=== PATIENT | female | born 1945 | race Caucasian/White ===

== ENCOUNTER 2022-06-12 16:06 | Inpatient (IN) ==
[2022-06-12 17:44] LABS: POC Calcium, Ionized 1.12 (1.16-1.32); POC Creatinine 0.6 (0.6-1.2); POC Potassium 4.3 (3.3-5.1)
[2022-06-12] MEDS ORDERED: ONDANSETRON 4 MG/2 ML VIAL IV PRN (18:06)
--- NOTE | 2022-06-12 18:06 | Emergency Department Note ---
HPI General Chief complaint: Constipation Stated complaint: Constipation Time Seen by Provider: 06/12/22 17:08 Source: patient Mode of arrival: ambulatory Limitations: no limitations History of Present Illness HPI Narrative: Narrative: Patient presents to ED after being directed by the Radiology Department for abno rmal CT abdomen and pelvis. Patient's been having worsening constipation for several weeks and has not had to pass stool in the last couple days. Her PCP ordered a CT of the abdomen pelvis which was suspicious for an obstruction. Radiologist ordered a water-soluble enema which confirmed a high-grade colonic obstruction. Patient denies fever, chills, nausea, vomiting, Neeraj pain, melena, medic easier, dysuria, hematuria, urinary frequency, shortness of breath. She denies any [id number] medication. Patient has any other alleviating or aggravating factors. Related Data Home Medications Medication Instructions Recorded Confirmed brimonidine 0.2 % eye drops See Rx Instructions ophthalmic 01/17/21 06/11/22 (eye) .COMPLEX triamcinolone acetonide 0.1 % See Rx Instructions topical 01/17/21 06/11/22 topical ointment .COMPLEX Saccharomyces boulardii 250 mg 275 mg PO BID 03/12/21 06/11/22 capsule (Daily Probiotic (S. boulardii)) aspirin 81 mg tablet,delayed 81 mg PO QDAY 03/12/21 06/11/22 release cholecalciferol (vitamin D3) 25 50 mcg PO QDAY 03/12/21 06/11/22 mcg (1,000 unit) capsule coenzyme Q10 100 mg capsule 100 mg PO QDAY 03/12/21 06/11/22 diltiazem HCl 180 mg 180 mg PO QAM 03/12/21 06/11/22 capsule,extended release 24 hr escitalopram oxalate 20 mg tablet 20 mg PO .COMPLEX 03/12/21 06/11/22 latanoprost 0.005 % eye drops 1 drp ophthalmic (eye) QDAY 03/12/21 06/11/22 loratadine 10 mg capsule 10 mg PO QDAY 03/12/21 06/11/22 losartan 100 mg tablet See Rx Instructions PO QDAY 03/12/21 06/11/22 multivitamin 1 tab PO QAM 03/12/21 06/11/22 omega-3 fatty acids 1,000 mg 1,000 mg PO QDAY 03/12/21 06/11/22 capsule (Fish Oil Concentrate) rosuvastatin 20 mg tablet 20 mg PO QDAY 03/12/21 06/11/22 spironolactone 25 mg tablet See Rx Instructions PO BID 03/12/21 06/11/22 vitamin E mixed 400 unit capsule unit PO 03/12/21 06/11/22 alendronate 70 mg tablet (Fosamax) 70 mg PO QWEEK 06/11/22 06/11/22 Previous Rx's Medication Instructions Recorded albuterol sulfate 90 mcg/actuation 2 puff inhalation .COMPLEX PRN 06/11/22 aerosol inhaler shortness of breath or wheezing #8.5 grams Allergies Allergy/AdvReac Type Severity Reaction Status Date / Time Penicillins Allergy Mild Rash Verified 06/12/22 16:09 Review of Systems ROS ROS Narrative: Narrative: All systems ED: reviewed and negative except as stated. [facility] Narrative Patient History Narrative: Narrative: Medical/Surgical/Family History All Active Problems (Updated 06/12/22 @ 18:06 by Ray Neff DO) Colonic obstruction (Acute) [id number] deficiency (Chronic) Restrictive lung disease (Chronic) Chronic obstructive pulmonary disease (Chronic) Paralyzed hemidiaphragm (Chronic) Shortness of breath (Chronic) Nocturnal hypoxia (Chronic) Elevated hemidiaphragm (Chronic) Mixed stress and urge urinary incontinence (Acute) Vitamin D deficiency (Chronic) Osteopenia (Chronic) Mixed anxiety and depressive disorder (Chronic) Asthma (Chronic) Hypoxia (Chronic) Cholelithiasis without obstruction (Chronic) Calcification of coronary artery (Chronic) Paroxysmal junctional tachycardia (Chronic) Microalbuminuria (Chronic) Microscopic hematuria (Chronic) Seasonal allergies (Chronic) Dry skin (Chronic) Dry eye (Chronic) Itchy eyes (Chronic) Fatigue (Chronic) Glaucoma (Chronic) Depressive disorder (Chronic) Hyperlipidemia (Chronic) Peripheral edema (Chronic) Hypertensive disorder (Chronic) Paroxysmal atrial fibrillation (Chronic) Allergic rhinitis (Chronic) Bronchiolitis (Chronic) Disorder of diaphragm (Chronic) Atelectasis (Chronic) Medical History Allergic rhinitis Asthma Atelectasis Bronchiolitis Calcification of coronary artery Cholelithiasis without obstruction Depressive disorder Disorder of diaphragm Dry eye Dry skin Elevated hemidiaphragm left Fatigue Glaucoma Hyperlipidemia Hypertensive disorder Hypoxia Itchy eyes Microalbuminuria Microscopic hematuria Mixed anxiety and depressive disorder Nocturnal hypoxia Osteopenia Paroxysmal atrial fibrillation Paroxysmal junctional tachycardia Peripheral edema Seasonal allergies Shortness of breath Vitamin D deficiency Surgical History History of arthroscopic knee surgery 2008, 2009 Family History Father , age 69 Heart disease Alcohol abuse Myocardial infarction Cerebrovascular accident Mother , age 83 Cerebrovascular accident Hypertensive disorder Brother Heart disease Diabetes mellitus Hyperlipidemia Morbid obesity Colon cancer Grandmother Ovarian cancer Maternal Social History Smoking Status: Never smoker Alcohol Intake Frequency: holiday/special occasion only Substance Use: does not use Exam Narrative Narrative: Narrative: General Limitations: no limitations General appearance: Present alert Respiratory Respiratory: Present normal lung sounds bilaterally; Absent respiratory distress Cardiovascular Cardiovascular: Present regular rate and normal rhythm Adbominal Abdominal: Present soft and diminished bowel sounds; Absent tenderness Back Back: Absent CVA tenderness (R) or CVA tenderness (L) Neurological Neurological: Present oriented X3 and normal gait Psychiatric Psychiatric: Present normal affect and normal mood Skin Skin: Present warm (WNL) and intact Course Course Course Narrative: Patient was evaluated for constipation and inability to pass stool. CT abdomen pelvis was obtained that showed that patient has a possible colonic obstruction. A water-soluble enema was performed and confirmed a high-grade colonic obstruction. Case was discussed with general surgeon, Dr. Proctor recommends that patient be admitted to him. Plan was discussed with patient and she expressed verbal understanding and agreement of plan. Consultations Consultation #1: Case discussed with Dr. Proctor, on-call general surgeon, who recommend the patient be admitted to him. Time: 17:58 Vital Signs Vital signs: Vital Signs Temperature 97.8 F 06/12/22 16:10 Pulse Rate 67 06/12/22 16:10 Respiratory Rate 16 06/12/22 16:10 Blood Pressure 109/63 06/12/22 16:10 Pulse Oximetry (%) 96 06/12/22 16:10 Oxygen Delivery Method 06/12/22 16:10 Temperature 97.8 F 06/12/22 16:10 Pulse Rate 56 L 06/12/22 17:28 Respiratory Rate 16 06/12/22 16:10 Blood Pressure 144/68 06/12/22 17:16 Pulse Oximetry (%) 96 06/12/22 17:28 Oxygen Delivery Method 06/12/22 16:10 MDM MDM Narrative Medical decision making narrative: Narrative: Sepsis Sepsis Identified: No Differential Diagnosis Differential Diagnosis: obstruction, Neeraj pain, constipation Medical Records Medical records reviewed: Yes I reviewed the patient's medical records. Lab Data Lab results reviewed: Yes I reviewed the patient's lab results. Result diagrams: 06/12/22 17:11 Labs: Lab Results 06/12/22 06/12/22 Range/Units 17:11 17:41 WBC 6.1 (4.5-11.0) K/mcL RBC 4.66 (3.59-5.38) M/mcL Hgb 13.2 (11.2-15.7) g/dL Hct 40.9 (34.1-44.9) % POC Hct 42.0 (36-48) MCV 87.8 (80.0-100.0) fL MCH 28.3 (26.0-34.0) pg MCHC 32.3 (31.0-36.0) g/dL RDW 12.7 (11.5-14.5) % Plt Count 228 (140-440) K/mcL MPV 10.2 (7.4-10.4) fL Immature Gran % (Auto) 0.3 (0.0-0.5) % Neut % (Auto) 60.8 (38.0-78.0) % Lymph % (Auto) 25.8 (15.5-49.0) % [place] % (Auto) 10.7 (1.0-12.0) % Eos % (Auto) 1.6 (0.0-7.0) % Baso % (Auto) 0.8 (0.0-2.0) % Lymph # (Auto) 1.57 (1.50-4.80) K/mcL [place] # (Auto) 0.65 (0.10-0.90) K/mcL Eos # (Auto) 0.10 (0.00-0.70) K/mcL Baso # (Auto) 0.05 (0.00-0.30) K/mcL Immature Gran # 0.02 (0.00-0.05) K/mcl Absolute Neutrophils 3.70 (1.80-8.00) K/mcL POC Sodium 138 (133-145) POC Potassium 4.3 (3.3-5.1) POC Chloride 100 (96-108) POC Total CO2 29.0 (22-30) POC BUN 10 (6-20) POC Creatinine 0.6 (0.6-1.2) POC Glucose 92 (70-105) POC WB Ioniz Calcium 1.12 L (1.16-1.32) Radiology Data Radiology results reviewed: Yes I reviewed the patient's radiology results. Radiology results narrative: CT abdomen pelvis obtained with image reviewed myself, agree with radiologist to rotation Core Measures AMI Core Measures Followed: Yes Discharge Plan Patient/Caregiver Discharge Instructions Pt seen by [facility]/PA only: No Clinical Impression: Colonic obstruction Patient Disposition: Xfer As Outpt/Obs ([facility]) Condition: Fair Follow up with: Ru Partida MD [Primary Care Provider] - Prescriptions: No Action brimonidine 0.2 % drops See Rx Instructions ophthalmic (eye) .COMPLEX Rx Instructions: ophthalmic (eye); triamcinolone acetonide 0.1 % ointment See Rx Instructions topical .COMPLEX Rx Instructions: topical; escitalopram oxalate 20 mg tablet 20 mg PO .COMPLEX Rx Instructions: 20 mg PO ; losartan 100 mg tablet See Rx Instructions PO QDAY Rx Instructions: PO daily; spironolactone 25 mg tablet See Rx Instructions PO BID Rx Instructions: PO twice a day; rosuvastatin 20 mg tablet 20 mg PO QDAY diltiazem HCl 180 mg capsule,extended release 24hr 180 mg PO QAM loratadine 10 mg capsule 10 mg PO QDAY aspirin 81 mg tablet,delayed release (DR/EC) 81 mg PO QDAY latanoprost 0.005 % drops 1 drp ophthalmic (eye) QDAY multivitamin Tablet 1 tab PO QAM vitamin E mixed 400 unit capsule PO cholecalciferol (vitamin D3) 25 mcg (1,000 unit) capsule 50 mcg PO QDAY coenzyme Q10 100 mg capsule 100 mg PO QDAY omega-3 fatty acids [Fish Oil Concentrate] 1,000 mg capsule 1,000 mg PO QDAY Saccharomyces boulardii [Daily Probiotic (S. boulardii)] 250 mg capsule 275 mg PO BID alendronate [Fosamax] 70 mg tablet 70 mg PO QWEEK Trelegy Ellipta 100-62.5-25 mcg blister with device 0RF albuterol sulfate 90 mcg/actuation HFA aerosol inhaler 2 puff inhalation .COMPLEX PRN (Reason: shortness of breath or wheezing) Qty: 8.5 2RF Rx Instructions: 2 puffs inhalation ; PRN;
[2022-06-12 18:08] LABS: Basophils # (Auto) 0.05 K/mcL (0.00-0.30); Basophils % (Auto) 0.8 % (0.0-2.0); Eosinophils % (Auto) 1.6 % (0.0-7.0); Hematocrit 40.9 % (34.1-44.9); Hemoglobin 13.2 g/dL (11.2-15.7); Lymphocytes # (Auto) 1.57 K/mcL (1.50-4.80); Lymphocytes % (Auto) 25.8 % (15.5-49.0); Mean Cell Volume 87.8 fL (80.0-100.0); Mean Corpuscular HGB Conc 32.3 g/dL (31.0-36.0); Mean Platelet Volume 10.2 fL (7.4-10.4); Monocytes # (Auto) 0.65 K/mcL (0.10-0.90); Monocytes % (Auto) 10.7 % (1.0-12.0); Neutrophils % (Auto) 60.8 % (38.0-78.0); Platelet Count 228 K/mcL (140-440); RBC 4.66 M/mcL (3.59-5.38); Red Cell Distribution Width 12.7 % (11.5-14.5); WBC 6.1 K/mcL (4.5-11.0)
[2022-06-12] MEDS: 0.9 % SODIUM CHLORIDE 1,000 ML IV SCH (18:27)
--- NOTE | 2022-06-12 19:26 | General Surg History&Physical ---
HPI History of Present Illness Patient information: Note initiated : 06/12/22 at 7:11 pm Service Date, if different from initiated Date: [] Patient: Lita Pineda a 77 y/o F admitted on for Constipation. Chief Complaint: [] Chief complaint: Sigmoid colon obstruction History of present illness: Ms. Pineda is a 77 year old F with history of progressive constipation over the past 3 to 4 weeks. She was placed on stool softeners without improvement. Her primary care provider ordered a CT of abdomen and pelvis. This shows high-grade obstruction of the distal sigmoid colon and a follow-up single contrast barium enema shows a severe obstruction of the rectosigmoid junction with essentially no flow retrograde through the stricture. Patient has noted that her stools have become progressively smaller over the past few months. She has not had weight loss and she has not had rectal bleeding. She has never had colonoscopy evaluation. Constitutional Constitutional: Present fatigue and malaise; Absent weakness or weight loss EENT Eyes: Absent decreased night vision, diplopia or loss of vision Ears: Present decreased hearing and ear discharge Nose, mouth and throat: Present abnormal hearing; Absent dysphagia, hoarseness or vertigo Cardiovascular Cardiovascular: Present dyspnea on exertion, pedal edema and rapid heart rate; Absent chest pain, claudication or palpatations Respiratory Respiratory: Present dyspnea on exertion; Absent wheezing, chest congestion or excessive phlegm production Gastrointestinal Gastrointestinal: Present belching, change in stool character, constipation and cramping; Absent diarrhea, heartburn, nausea or vomiting Genitourinary Genitourinary: Absent dysuria or hematuria Musculoskeletal Musculoskeletal: Present arthralgias; Absent muscle cramps, myalgias or numbness Integumentary Integumentary: Present swelling (Lower extremities) and unusual bruising (In upper and lower extremities) Neurological Neurological: Absent dizziness, headache(s), sensory deficit or vertigo Psychiatric Psychiatric: Present depression Endocrine Endocrine: Present change in body appearance, excessive sweating, palpitations, polydipsia and polyphagia Hematologic/Lymphatic Hematologic/Lymphatic: Present easy bruising; Absent easy bleeding or lymphadenopathy Allergic/Immunologic Allergic/Immunologic: Absent tongue swelling, throat swelling, itchy eyes, uticaria, wheezing or lip swelling PFSH PFSH All Active Problems (Updated 06/12/22 @ 19:24 by Servando Proctor MD) Neoplasm of rectosigmoid junction (Acute) Colonic obstruction (Acute) [id number] deficiency (Chronic) Restrictive lung disease (Chronic) Chronic obstructive pulmonary disease (Chronic) Paralyzed hemidiaphragm (Chronic) Shortness of breath (Chronic) Nocturnal hypoxia (Chronic) Elevated hemidiaphragm (Chronic) Mixed stress and urge urinary incontinence (Acute) Vitamin D deficiency (Chronic) Osteopenia (Chronic) Mixed anxiety and depressive disorder (Chronic) Asthma (Chronic) Hypoxia (Chronic) Cholelithiasis without obstruction (Chronic) Calcification of coronary artery (Chronic) Paroxysmal junctional tachycardia (Chronic) Microalbuminuria (Chronic) Microscopic hematuria (Chronic) Seasonal allergies (Chronic) Dry skin (Chronic) Dry eye (Chronic) Itchy eyes (Chronic) Fatigue (Chronic) Glaucoma (Chronic) Depressive disorder (Chronic) Hyperlipidemia (Chronic) Peripheral edema (Chronic) Hypertensive disorder (Chronic) Paroxysmal atrial fibrillation (Chronic) Allergic rhinitis (Chronic) Bronchiolitis (Chronic) Disorder of diaphragm (Chronic) Atelectasis (Chronic) Medical History Allergic rhinitis Asthma Atelectasis Bronchiolitis Calcification of coronary artery Cholelithiasis without obstruction Depressive disorder Disorder of diaphragm Dry eye Dry skin Elevated hemidiaphragm left Fatigue Glaucoma Hyperlipidemia Hypertensive disorder Hypoxia Itchy eyes Microalbuminuria Microscopic hematuria Mixed anxiety and depressive disorder Nocturnal hypoxia Osteopenia Paroxysmal atrial fibrillation Paroxysmal junctional tachycardia Peripheral edema Seasonal allergies Shortness of breath Vitamin D deficiency Surgical History History of arthroscopic knee surgery 2008, 2009 Family History Father , age 69 Heart disease Alcohol abuse Myocardial infarction Cerebrovascular accident Mother , age 83 Cerebrovascular accident Hypertensive disorder Brother Heart disease Diabetes mellitus Hyperlipidemia Morbid obesity Colon cancer Grandmother Ovarian cancer Maternal Social History marital status: unknown smoking status: Never smoker alcohol intake frequency: holiday/special occasion only substance use type: does not use MEDS/ALLERGIES Home Medications and Allergies Home Medications Medication Instructions Recorded Confirmed Type brimonidine 0.2 % eye drops See Rx Instructions ophthalmic 01/17/21 06/11/22 History (eye) .COMPLEX triamcinolone acetonide 0.1 % See Rx Instructions topical 01/17/21 06/11/22 History topical ointment .COMPLEX Saccharomyces boulardii 250 mg 275 mg PO BID 03/12/21 06/11/22 History capsule (Daily Probiotic (S. boulardii)) aspirin 81 mg tablet,delayed 81 mg PO QDAY 03/12/21 06/11/22 History release cholecalciferol (vitamin D3) 25 50 mcg PO QDAY 03/12/21 06/11/22 History mcg (1,000 unit) capsule coenzyme Q10 100 mg capsule 100 mg PO QDAY 03/12/21 06/11/22 History diltiazem HCl 180 mg 180 mg PO QAM 03/12/21 06/11/22 History capsule,extended release 24 hr escitalopram oxalate 20 mg tablet 20 mg PO .COMPLEX 03/12/21 06/11/22 History latanoprost 0.005 % eye drops 1 drp ophthalmic (eye) QDAY 03/12/21 06/11/22 Hist ory loratadine 10 mg capsule 10 mg PO QDAY 03/12/21 06/11/22 History losartan 100 mg tablet See Rx Instructions PO QDAY 03/12/21 06/11/22 History multivitamin 1 tab PO QAM 03/12/21 06/11/22 History omega-3 fatty acids 1,000 mg 1,000 mg PO QDAY 03/12/21 06/11/22 History capsule (Fish Oil Concentrate) rosuvastatin 20 mg tablet 20 mg PO QDAY 03/12/21 06/11/22 History spironolactone 25 mg tablet See Rx Instructions PO BID 03/12/21 06/11/22 History vitamin E mixed 400 unit capsule unit PO 03/12/21 06/11/22 History albuterol sulfate 90 mcg/actuation 2 puff inhalation .COMPLEX PRN 06/11/22 06/11/22 Rx aerosol inhaler shortness of breath or wheezing #8.5 grams alendronate 70 mg tablet (Fosamax) 70 mg PO QWEEK 06/11/22 06/11/22 History Allergies Allergy/AdvReac Type Severity Reaction Status Date / Time Penicillins Allergy Mild Rash Verified 06/12/22 16:09 Physical Examination Vital Signs Vital signs: Temp Pulse Resp BP Pulse Ox O2 Del Method 97.8 F 58 L 16 114/87 96 06/12/22 16:10 06/12/22 18:29 06/12/22 16:10 06/12/22 18:29 06/12/22 18:29 06/12/22 16:10 General physical appearance General physical exam: well developed, well nourished, no distress, no pain and obese Eyes Eye exam: PERRL and normal ocular movement ENT ENT exam: normal mucosa and decreased hearing; negative dentures or mucosal exudate Head Head exam IM: Present atraumatic, normal inspection and normocephalic Neck Neck exam: no masses, no bruits, trachea midline, no lymphadenopathy and no venous distension Cardiovascular Cardiovascular exam IM: Present normal rate and rhythm, RRR, +S1 and +S2; Absent JVD or systolic murmur Respiratory Respiratory exam: normal expansion, normal respiratory effort and clear to auscultation Abdomen Abdomen: Present soft, non tender, bowel sounds (present) and distended; Absent organomegaly, masses or guarding Integumentary Integumentary: Present no rash, no growths and other (Bilateral stasis dermatitis with 1+ edema) Neurologic Neurologic: Present normal coordination and normal sensation Musculoskeletal Musculoskeletal: Present normal gait, normal posture and other (Surgical scars both knees) Psychiatric Psychiatric: Present oriented to time, oriented to person, oriented to place, speech is normal and memory intact Results Labs Result diagrams: 06/12/22 17:11 Labs: Abnormal lab results 06/12/22 Range/Units 17:41 POC WB Ioniz Calcium 1.12 L (1.16-1.32) All other labs normal. A/P Assessment and plan (1) Colonic obstruction: Status: Acute (2) Neoplasm of rectosigmoid junction: Status: Acute (3) Chronic obstructive pulmonary disease: Status: Chronic Qualifiers: COPD type: unspecified COPD Qualified Code(s): J44.9 - Chronic obstructive pulmonary disease, unspecified (4) Restrictive lung disease: Status: Chronic (5) Mixed anxiety and depressive disorder: Status: Chronic (6) Hypertensive disorder: Status: Chronic (7) Paroxysmal atrial fibrillation: Status: Chronic Plan Patient cannot have bowel prep because of total obstruction. She is counseled for laparotomy with resection of rectosigmoid mass and end colostomy. This will be performed tomorrow. She will receive perioperative antibiotics. Copy of the echocardiogram from [facility] will be obt ained. EKG chest x-ray will be done. Sepsis Sepsis Identified: No Time Spent With Patient Time: Total time spent is greater than 50% in coordination of care (as documented) at patient's floor/unit and/or counseling patient:
[2022-06-12] MEDS ORDERED: METOPROLOL TARTRATE 5 MG/5 ML VIAL IV PRN (19:37)
[2022-06-12] MEDS ORDERED: hydrALAZINE 20 MG/ML VIAL IV PRN (19:37)
[2022-06-12 20:26] LABS: Prothrombin Time 13.7 sec (11.9-14.5)
[2022-06-12] MEDS: CEFEPIME 2 GM VIAL IV SCH (21:32)
[2022-06-13] MEDS: metroNIDAZOLE 500 MG/100 ML BAG IV SCH ×4 (00:15→17:11)
[2022-06-13] MEDS: LORazepam 2 MG/ML VIAL IV PRN (00:25)
--- NOTE | 2022-06-13 01:58 | XRay Report ---
CLINICAL INFORMATION: Preop COMPARISON: 08/22/2020 TECHNIQUE: Portable FINDINGS: The heart size, mediastinum and pulmonary vessels are unremarkable. Severe chronic elevation of left diaphragm resulting in subtotal compressive atelectasis of the lingula and left lower lobe. The remaining lungs are clear. There are no effusions. The bones and soft tissues are within normal limits. IMPRESSION: Severe chronic elevation of the left diaphragm resulting in subtotal atelectasis lingula and left lower lobe. 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 No acute disease Interpreted and Authenticated by: Tashi Saini 06/13/22
[2022-06-13] MEDS: 0.9 % SODIUM CHLORIDE 1,000 ML IV SCH ×2 (03:53→15:34)
--- OUTSIDE RECORDS SUMMARY | 2022-06-13 04:54 | External Medical Summary ---
:1945 Author Care Team Providers Name Role Phone R MARTHA CLEMENTE MD Gold Beater [phone] [facility]ETRY Garnisher [phone] ANGELITA PRATIDA MD Primary Care Provider [phone] Allergies Code Code System Name Reaction Severity Status Onset Penicillins Rash Mild Active Notes: Keflex ok. Medications Name Status Start Date Stop Date albuterol sulfate 2.5 mg/3 mL (0.083 %) solution for nebulizatio n Active Not available Inhale 3 mL 4 times a day by nebulization route as directed. albuterol sulfate HFA 90 mcg/actuation aerosol inhaler Active Not available alendronate 70 mg tablet Active Not dayan ilable aspirin 81 mg tablet,delayed release Active Not available Take 1 tablet every day by oral route. atorvastatin 10 mg tablet Completed 2019 atorvastatin 20 mg tablet Completed 2020 azithromycin 500 mg tablet Completed 08/16 brimonidine 0.2 % eye drops Active Not available Calcium 500 Active Not available Take 500 mg twice daily. Cartia XT 180 mg capsule,extended release Active Not available diltiazem CD 120 mg capsule,extended release 24 hr Completed 10/17/2020 escitalopram 10 mg tablet Completed 2017 Take 1 tablet every day by oral route for 30 days. escitalopram 20 mg tablet Active Not av ailable fluorouracil 5 % topical cream Active N ot available fluticasone propionate 50 mcg/actuation nasal Active Not available spray,suspension furosemide 20 mg tablet Completed 08/16/20 18 latanoprost 0.005 % eye drops Active No t available levofloxacin 750 mg tablet Completed 08/16 loratadine 10 mg tablet Active Not avai lable Take one (1) tablet by mouth once daily losartan 100 mg tablet Active Not avail able Multiple Vitamins Active Not available take one daily Naprosyn 500 mg tablet Completed 9 Take 1 tablet twice a day by oral route as needed. prednisone 20 mg tablet Completed 08/16/20 rosuvastatin 20 mg tablet Active Not av ailable spironolactone 25 mg tablet Active Not available triamcinolone acetonide 0.1 % topical ointment Active Not available valacyclovir 1 gram tablet Completed 05/27 Vitamin D3 25 mcg (1,000 unit) capsule Active Not available Take 1 capsule every day by oral route. 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 Osteoporosis Active 06/10/2021 Carotid Atherosclerosis Active 06/19/2021 Procedures Date Name Performed by Total Knee Arthroplasty Information not available Notes: Bilateral 200908/17/2018 DEXA, Axial Skeleton [facility] pital Rad [address] [place] [address] (Work Place) 02/09/2019 DEXA, Axial Skeleton [facility] - Radiology [facility] [place] [address] (Work Place) 06/12/2020 MAMMO, Screening, Digital, Bilateral [facility] [address] [place] [id number] (Work Place) 07/30/2020 MAMMO, Screening, Digital, Bilateral [facility] Radiology [address] [place] [address], [place] [id number] (Work Place) 07/30/2020 XR, Chest, 2 View [facility] Rad [address] [place] [address] (Work Place) 08/22/2020 CT, Chest, W/o Contrast [facility] Radiology [address] [place] [address], [place] [id number] (Work Place) 08/23/2020 Electrocardiogram [facility] Rad [address] [place] [address] (Work Place) 10/17/2020 US, Abdomen, Complete [facility] [address] [place] [address], [place] [address] (Work Place) 10/17/2020 Electrocardiogram [facility] Rad [address] [place] [address] (Work Place) 01/09/2021 US, Renal [facility] [address] [place] [address], [place] [id number] (Work Place) 01/09/2021 US, Bladder [facility] [address] [place] [address], [place] [id number] (Work Place) 01/09/2021 US, Retroperitoneum, Complete [facility] [address] [place] [address], [place] [address] (Work Place) 01/30/2021 US, Echocardiogram, Transthoracic, [facility] Complete [address] [place] [address] (Work Place) 08/12/2021 MAMMO, Screening, Digital, Bilateral [facility] [address] [place] [address], [place] [id number] (Work Place) 05/27/2021 DEXA, Axial Skeleton + [facility]bral [facility] Fracture Assessment [address] [place] [address], [place] [id number] (Work Place) 05/27/2021 US, Duplex, Carotid Artery [facility] Rad [address] [place] [address] (Work Place) 08/10/2021 MAMMO, Screening, Digital, Bilateral [facility] Rad [address] [place] [address] (Work Place) 03/12/2022 XR, Shoulder, 2 or More View [facility] Rad [address] [place] [address] (Work Place) 06/12/2022 CT, Abdomen + Pelvis, W/ Contrast [facility] - Radiology [address] [place] [address] (Work Place) Results Lab Results Date Name Specimen Result Interpretation Description Value Range Status Address 06/12/2022 Urinalysis, U Normal Color yellow yellow Final [facility](DO Not Use): [address] Aiyana Snyder U Normal Clarity clear clear Final [facility](D O Not Use): [address] Aiyana Snyder U ABNORMAL Specgrav 1.030 1.015-1.[address](D O Not Use): [address] Aiyana Sanchez U Normal Ph 6.0 5.5-7.0 Final [facility](D O Not Use): [address] Aiyana Snyder U Normal Glucose negative negative; Final [facility](D O Not Use): [address] Snyder U ABNORMAL Bilirub small negative; Final [facility](D O Not Use): [address] Snyder U Normal Ketone negative negative; Final [facility](D O Not Use): [address] Snyder U Normal Blood negative negative; Final [facility](D O Not Use): [address] Snyder U ABNORMAL Protein trace negative; Final [facility](D O Not Use): [address]iy[address] Snyder U ABNORMAL Urobilin 1.0 0.2 Final [facility](D O Not Use): [address] Aiyana Snyder U Normal Nitrite negative negative; Final [facility](D O Not Use): [address]iyana Snyder U ABNORMAL Leukocyte 2+ negative; Final [facility] neg;trace [facility](D O Not Use): [address] Aiyana Sanchez 06/12/2022 Cbc WB Normal Wbc 6.66 K/uL 4.50-11.5 Final [place] 0 K/uL [facility](D O Not Use): [address] Aiyana Sanchez WB Normal Rbc 4.71 M/uL 4.00-5.20 Final [facility] ield M/uL [facility](D O Not Use): [address] Elijah Sanchezy WB Normal Hgb 13.4 g/dL 12.0-15.0 Final [facility] ield g/dL [facility](D O Not Use): [address] [facility], Aiyana WB Normal Hct 41.5 % 36.0-48.0 Final [facility](D O Not Use): [address] [facility], Aiyana WB Normal Mcv 88.1 fL 80.0-99.9 Final [facility](D O Not Use): [address] [facility], Aiyana WB Normal Mch 28.5 pg 26.0-34.0 Final [facility](D O Not Use): [address] [facility], [place] WB Normal Mchc 32.3 g/dL 31.0-36.0 Final Garf ield g/dL [facility](D O Not Use): [address] [facility], [place] WB Normal Rdw 12.6 % 11.0-16.0 Final [facility](D O Not Use): [address] [facility], Aiyana WB Normal Plt 247 K/uL 140-440 Final [facility] K/uL [facility](D O Not Use): [address] [facility], [place] WB Normal Mpv 9.1 fL 7.4-10.4 Final [facility](D O Not Use): [address] [facility], [place] WB Normal Neut% 60.7 % 45.0-70.0 Final [facility](D O Not Use): [address] [facility], [place] WB Normal Lymph% 25.5 % 15.5-49.0 Final [facility](D O Not Use): [address] [facility], Aiyana WB High Canadian% 10.7 % 1.7-9.2 % Final [facility](D O Not Use): [address] [facility], [place] WB Normal Eos% 2.0 % 1.0-5.0 % Final [facility](D O Not Use): [address] [facility], Aiyana WB High Baso% 0.9 % 0.0-0.5 % Final [facility](D O Not Use): [address] [facility], Aiyana WB Normal Ig% 0.2 % 0.0-72.0 Final [facility](D O Not Use): [address] [facility], [place] WB Normal Neut# 4.05 K/uL 2.00-7.50 Final [facility](D O Not Use): [address] [facility], [place] WB Normal Lymph# 1.70 K/uL 1.00-3.40 Final [facility](D O Not Use): [address] [facility], [place] WB High Canadian# 0.71 K/uL 0.10-0.60 Final [facility](D O Not Use): [address] [facility], [place] WB Normal Eos# 0.13 K/uL 0.00-0.40 Final [facility](D O Not Use): [address] [facility], [place] WB Normal Baso# 0.06 K/uL 0.00-0.10 Final [facility](D O Not Use): [address] [place] [address] WB Normal Ig# 0.01 K/uL 0.00-7.00 Final [facility](D O Not Use): [address] [place] [address] 06/12/2022 Lipase P Low Lip 59.58 U/L 73.00-393 Final [place] .00 U/L [facility](D O Not Use): [address] [place] [address] 06/12/2022 CMP, Serum S Normal Glu 109 mg/dL 70-110 Final [place] or Plasma mg/dL [facility](D O Not Use): [address] [place] [address] S Normal Bun 11.42 mg/dL 7.00-18.0 Final [place] 0 mg/dL [facility](D O Not Use): [address] [place] [address] S Normal Crea 0.79 mg/dL 0.30-1.30 Final [facility] mg/dL [facility](D O Not Use): [address] [place] [address] S Normal Na 138.69 136.00-14 Final [facility]/L 5.00 [facility] mmol/[facility](D O Not Use): [address] [place] [address] S Normal K 4.04 mmol/L 3.50-5.10 Final [place] mmol/L [facility](D O Not Use): [address] [facility] Normal Cl 102.40 98.00-107 Final Garfi d mmol/L .00 [facility] mmol/L [facility](D O Not Use): [address] [facility] Normal Ec02 29.78 21.00-32. Final Garfiel d mmol/L 00 mmol/L [facility](D O Not Use): [address] [facility] Normal Angap 10.55 7.00-21.0 [facility] mmol/L [facility](D O Not Use): [address] [facility] Normal Ca 9.24 mg/dL 8.10-10.2 Final Gar field 0 mg/dL [facility](D O Not Use): [address] [facility] Normal Tp 6.73 g/dL 6.00-8.30 Final Garf ield g/dL [facility](D O Not Use): [address] [place] [address] Aiyana Olivera Normal Alb 3.71 g/dL 3.40-5.00 Final Garf ield g/dL [facility](D O Not Use): [address] [place] [address] Aiyana Olivera Normal Glob 3.02 g/dL 2.20-3.30 Final Garf ield g/dL [facility](D O Not Use): [address] [place] [address] Aiyana Olivera Normal A/g 1.23 1.00-2.20 Final Garfiel d [facility](D O Not Use): [address] [place] [address] Aiyana Olivera Normal Tbili 0.47 mg/dL 0.00-1.20 Final Gar field mg/dL [facility](D O Not Use): [address] [facility] Normal Ast 22.54 U/L 13.00-39. Final Garf i[place] 00 U/L [facility](D O Not Use): [address] [facility] Normal Alt 23.14 U/L 14.00-59. Final Garf i[place] 00 U/L [facility](D O Not Use): [address] [facility] Normal Alp 103.81 U/L 46.00-136 Final Gar field .00 U/L [facility](D O Not Use): [address] Aiyana Snyder Normal Gfr 75.19 >60.00 Final [place] mL/min/bsa mL/min/bs [facility](D O Not Use): [address] Aiyana Snyder Normal Gfraa 91.13 >60.00 Final [place] mL/min/bsa mL/min/bs [facility](D O Not Use): [address] [facility] Aiyana Sanchez 05/07/2022 Lipid Panel, P Normal Chol 127.41 100.00-24 Keli l [place] Blood mg/dL 0.00 [facility] mg/ Hospital(D O Not Use): [address] [facility] Aiyana Sanchez Low Ahdl 48.90 mg/dL >60.[address] [facility] mg/dL [facility](D O Not Use): [address] [facility] Aiyana Sanchez Normal Trig 79.30 mg/dL 30.00-150 Final Mi rfield .00 mg/dL [facility](D O Not Use): [address] [facility] Aiyana Sanchez Normal Vldl 15.86 mg/dL Final [facility](D O Not Use): [address] [facility] Aiyana Sanchez Normal Risk 2.61 mg/dL 2.00-5.00 Final [facility] field mg/dL [facility](D O Not Use): [address] [facility] Aiyana Sanchez Low Dldl 59.53 mg/dL 70.00-129 Final [place] .00 mg/dL [facility](D O Not Use): [address] [facility] Aiyana Sanchez 05/07/2022 Bmp P Normal Ca 9.03 mg/dL 8.10-10.2 Final [place] 0 mg/dL [facility](D O Not Use): [address] [facility] Aiyana Sanchez Normal Crea 0.65 mg/dL 0.30-1.30 Final [facility] field mg/dL [facility](D O Not Use): [address] [facility] Aiyana Sanchez Normal K 4.47 mmol/L 3.50-5.10 Final Mi rfield mmol/L [facility](D O Not Use): [address] [facility] Aiyana Sanchez Normal Na 139.45 136.00-14 Final [facility] d mmol/L 5.00 [facility] mmol/L [facility](D O Not Use): [address] [facility] [address], Aiyana P Normal Bun 15.51 mg/dL 7.00-18.[address] [facility] 0 mg/dL [facility](D O Not Use): [address] Aiyana Snyder P Normal Glu 98 mg/dL 70-110 Final [place] mg/dL [facility](D O Not Use): [address] Aiyana Snyder P Normal Angap 12.72 7.00-21.0 Final [facility] d mmol/L 0 mmol/L [facility](D O Not Use): [address] Aiyana Snyder P Normal Cl 102.07 98.00-107 Final [facility] d mmol/L .00 [facility] mmol/[facility](D O Not Use): [address] Aiyana Snyder P Normal Ec02 29.12 21.00-32. Final [facility] d mmol/L 00 mmol/L [facility](D O Not Use): [address] Aiyana Snyder P Normal Gfr 93.86 >60.00 Final [place] mL/min/bsa mL/min/bs [facility](D O Not Use): [address] Aiyana Snyder P Normal Gfraa 113.76 >60.00 Final [place] mL/min/bsa mL/min/bs [facility](D O Not Use): [address] [facility] Aiyana Sanchez 04/23/2022 Urine, W/ U Normal Color yellow yellow Final [facility] Microscopy, Count y Auto_ref [facility] (DO Not Use): [address] [facility] Aiyana Sanchez U Normal Clarity clear clear Final [facility](D O Not Use): [address] [facility] Aiyana Sanchez U Normal Glucose normal normal Final [facility](D O Not Use): [address] [facility] Aiyana Sanchez U Normal Ketones negative negative Final [facility](D O Not Use): [address] [facility] Aiyana Sanchez U Normal Bilirubin negative negative Final [facility](D O Not Use): [address] [facility] Aiyana Sanchez U Normal Specific 1.022 1.005-1.0 Final [facility] [place] 30 [facility](D O Not Use): [address] [facility] Aiyana Sanchez U Normal Ph 6.5 5.0-7.5 Final [facility](D O Not Use): [address] Aiyana Snyder U Normal Blood negative negative Final Garfie ld [facility](D O Not Use): [address] Aiyana Snyder U ABNORMAL Protein trace negative Final [facility]): [address]iyana Snyder U ABNORMAL Urobilinog 1+ normal Final Gar field en [facility](D O Not Use): [address] Aiyana Snyder U Normal Nitrite negative negative Final Garf [facility](D O Not Use): [address] Aiyana Snyder U ABNORMAL Leukocyte 3+ negative Final Ga rfield Esterase [facility](D O Not Use): [address] Aiyana Snyder U ABNORMAL White 6-10 #/hpf 0-5 #/hpf Final G arfield Blood Cells Count [facility](D O Not Use): [address] Aiyana Snyder U Normal Red Blood 0-2 #/hpf 0-2 #/hpf Final [place] Cells [facility](D O Not Use): [address] Aiyana Snyder U Normal Squamous 0-10 #/hpf 0-10 Final Gar field Epithelial #/hpf [facility](D O Not Use): [address] Aiyana Snyder U Normal Bacteria none seen none seen Final G arfield hpf hpf [facility](D O Not Use): [address] Aiyana Snyder U Normal Mucous rare lpf none seen Final Garf ie lpf [facility](D O Not Use): [address] Aiyana Snyder U ABNORMAL Calcium many hpf none seen Final G arfield Oxalate hpf [facility]( DO Not Use): [address] Aiyana Snyder U Normal Culture culture to Final Garf ield Reflex follow [facility](D O Not Use): [address] Elijah Snydery 04/23/2022 Urine_cultur U Normal Urine clean catch Fi nal Trilla e_reflex Source [facility](D O Not Use): [address] Aiyana Snyder U Normal Micro <10,000 Final Tr[place] Culture colony [facility] Result [facility]( DO units per Not Use ): 66 mL mixed [address] Sanchez , urogenital Pomero y katherine 01/17/2022 CMP, Serum S Normal Glu 99 mg/dL 70-110 Final [place] or Plasma mg/dL [facility](D O Not Use): [address] Aiyana Snyder S Normal Bun 14.00 mg/dL 7.00-18.0 Final [place] 0 mg/dL [facility](D O Not Use): [address] [place] [address] Aiyana Olivera Normal Crea 0.73 mg/dL 0.30-1.30 Final Gar field mg/dL [facility](D O Not Use): [address] [place] [address] Aiyana Olivera Normal Na 140.02 136.00-14 Final Garfiel d mmol/L 5.00 [facility] Use): [address] [place] [address] Aiyana Olivera Normal K 4.50 mmol/L 3.50-5.10 Final [place] mmol/L [facility](D O Not Use): [address] [place] [address] Aiyana Olivera Normal Cl 103.45 98.00-107 Final Garfiel d mmol/L .00 [facility](D O Not Use): [address] [place] [address] Aiyana Olivera High Ec02 33.73 21.00-32. Final Garfiel d mmol/L 00 mmol/L [facility](D O Not Use): [address] [place] [address] Aiyana Olivera Normal Angap 7.34 mmol/L 7.00-21.0 Final [place] 0 mmol/L [facility](D O Not Use): [address] [place] [address] Aiyana Olivera Normal Ca 9.74 mg/dL 8.10-10.2 Final [place] field 0 mg/dL [facility](D O Not Use): [address] [place] [address] Aiyana Olivera Normal Tp err code 9 6.00-8.30 Final Gar field g/dL g/dL [facility](D O Not Use): [address] [place] [address] Aiyana Olivera Normal Alb 4.21 g/dL 3.40-5.00 Final Garf ield g/dL [facility](D O Not Use): [address] [place] [address] Aiyana Olivera Normal Tbili 0.54 mg/dL 0.00-1.20 Final Gar field mg/dL [facility](D O Not Use): [address] [place], [place] [address]pablo Olivera Normal Ast 13.74 U/L 13.00-39. Final Garf i[place] 00 U/L [facility](D O Not Use): [address] [place] [address] Aiyana Normal Alt 32.22 U/L 14.00-59. Final Garf i[place] 00 U/L [facility](D O Not Use): [address] [facility] Normal Alp 112.49 U/L 46.00-136 Final Gar field .00 U/L [facility](D O Not Use): [address] [facility] S Normal Gfr 82.45 >60.00 Final [place] mL/min/bsa mL/min/bs Cou [facility](D O Not Use): [address] [facility] S Normal Gfraa 99.93 >60.00 Final [place] mL/min/bsa mL/min/bs Cou [facility](D O Not Use): [address] [place] [address] 01/17/2022 Lipid Panel, P Normal Chol 143.30 100.00-24 [facility] Blood mg/dL 0.00 [facility] mg/[facility](D O Not Use): [address] [facility] P Low Ahdl 50.00 mg/dL >60.[address] [facility] mg/dL [facility](D O Not Use): [address] [facility] P Normal Trig 135.83 30.00-150 Final [facility] d mg/dL .00 mg/dL [facility](D O Not Use): [address] [facility] P Normal Vldl 27.17 mg/dL Final [facility](D O Not Use): [address] [facility] P Normal Risk 2.87 mg/dL 2.00-5.00 Final [facility] field mg/dL [facility](D O Not Use): [address] [facility] P Low Dldl 64.84 mg/dL 70.00-129 Final [place] .00 mg/dL [facility](D O Not Use): [address] [place] [address] 01/17/2022 Hemoglobin WB Normal A1C 6.0 % 4.5-6.2 % Final [place] a1C [facility](D O Not Use): [address] [place] [address] 01/17/2022 CBC W/ Auto S Normal Wbc 7.9 10*3 4.0-11.0 Keli l Tr[place] Diff_ref /uL 10*3 /uL [facility](D O Not Use): [address] [facility] Aiyana S Normal Rbc 5.04 10*6 3.80-5.20 Final Garf ield /uL 10*6 /uL [facility](D O Not Use): [address] [facility] Normal Hgb 14.3 g/dL 11.6-15.5 Final Garf ield g/dL [facility](D O Not Use): [address] [facility] Normal Hct 45.3 % 35.0-46.0 Final Garfiel d % [facility](D O Not Use): [address] [facility] Normal Mcv 89.9 fL 80.0-100. Final Garfie ld 0 fL [facility](D O Not Use): [address] [facility] Normal Mch 28.4 pg 27.0-34.0 Final Garfie ld pg [facility](D O Not Use): [address] [facility] Normal Mchc 31.6 g/dL 31.5-35.7 Final Garf ield g/dL [facility](D O Not Use): [address] [facility] Normal RDW-CV 12.5 % 11.0-15.0 Final Garfie ld % [facility](D O Not Use): [address] [facility] Normal Plt 264 10*3 150-400 Final Garfiel d /uL 10*3 /uL [facility](D O Not Use): [address] [facility] Normal Mpv 10.1 fL 9.4-12.4 Final Garfiel d [facility](D O Not Use): [address] [facility] Normal Neutrophil 60.2 % 40.0-80.0 Final [place] , % % [facility](D O Not Use): [address] [facility] Normal Lymphocyte 27.4 % 15.0-45.0 Final [place] , % % [facility](D O Not Use): [address] [facility] Normal Monocyte, 8.6 % 0.0-12.0 Final Garf ield % % [facility](D O Not Use): [address] [facility] Normal Eosinophil 2.4 % 0.0-7.0 % Final [place] , % [facility](D O Not Use): [address] [facility] Normal Basophil, 1.1 % 0.0-2.0 % Final [facility](D O Not Use): [address] [facility] Normal Neutrophil 4.75 10*3 2.00-7.30 Final [place] , Absolute /uL 10*3 /uL [facility](D O Not Use): [address] [facility] Normal Lymphocyte 2.16 10*3 1.00-3.40 Final [place] , Absolute /uL 10*3 /uL [facility](D O Not Use): [address] [facility] Normal Monocyte, 0.68 10*3 0.00-0.80 Final [place] Absolute /uL 10*3 /uL [facility](D O Not Use): [address] [facility] Eosinophil 0.19 10*3 0.00-0.50 Final Trilla , Absolute /uL 10*3 /uL [facility](D O Not Use): [address] [facility] Normal Basophil, 0.09 10*3 0.00-0.10 Final Trilla Absolute /uL 10*3 /uL [facility](D O Not Use): [address] [facility] Normal Ig, % 0.3 % 0.0-1.0 % Final formerly [facility](D O Not Use): [address] [facility] Normal Ig, 0.02 10*3 0.00-0.05 Final [facility] ield Absolute /uL 10*3 /uL [facility](D O Not Use): [address] [facility] Normal Nrbc, % 0.0 % 0.0-1.0 % Final [facility](D O Not Use): [address] [facility] Normal NRBC, 0.00 10*3 0.00-0.01 Final [facility] /uL 10*3 /uL [facility](D O Not Use): [address] [place] [address] 01/17/2022 Vitamin D 25 S Normal Vitamin D, 58 NG/mL >=30 Final Trilla Hydroxy_ref 25 Hydroxy NG/mL [facility](D O Not Use): [address] [place] [address] 01/17/2022 TSH_reflex_F S Normal TSH Reflex 3.010 0.270-4.2 Final Trilla T4_Ref uIU/mL 00 uIU/mL [facility](D O Not Use): [address] Aiyana Snyder 01/17/2022 Urine, W/ U Normal Color yellow yellow Final [facility] Microscopy, Count y Auto_ref Hospital (DO Not Use): [address] Aiyana Snyder U Normal Clarity clear clear Final [facility](D O Not Use): [address] [facility] Aiyana Sanchez U Normal Glucose normal normal Final [facility](D O Not Use): [address] [facility] Aiyana Sanchez U Normal Ketones negative negative Final [facility](D O Not Use): [address] [facility] Aiyana Sanchez U Normal Bilirubin negative negative Final [facility](D O Not Use): [address] Aiyana Snyder Normal Specific 1.021 1.005-1.[address](D O Not Use): [address] Aiyana Snyder U Normal Ph 7.0 5.0-7.5 Final [facility](D O Not Use): [address] Aiyana Snyder U Normal Blood negative negative Final [facility](D O Not Use): [address] Aiyana Snyder U ABNORMAL Protein trace negative Final [facility](D O Not Use): [address] Aiyana Snyder U Normal Urobilinog normal normal Final [facility](D O Not Use): [address] Aiyana Snyder U Normal Nitrite negative negative Final [facility](D O Not Use): [address] Aiyana Snyder U ABNORMAL Leukocyte 2+ negative Final [facility](D O Not Use): [address] Aiyana Snyder U ABNORMAL White 21-50 #/hpf 0-5 #/hpf Final [facility] Blood Cells Count Hospital(D O Not Use): [address] Aiyana Snyder U ABNORMAL Red Blood 3-5 #/hpf 0-2 #/hpf Final [facility](D O Not Use): [address] Aiyana Snyder U Normal Squamous 0-10 #/hpf 0-10 Final [facility] Epithelial #/hpf [facility](D O Not Use): [address] [facility] U Normal Bacteria none seen none seen Final [facility]field hpf hpf [facility](D O Not Use): [address] Aiyana Snyder U Normal Mucous rare lpf none seen Final Garf ield lpf [facility](D O Not Use): [address] [facility] U Normal Culture culture to Final Garf ield Reflex follow [facility](D O Not Use): [address] [facility] 01/17/2022 Micro S Normal Microalbum 1.4 mg/dL 0.0-2.0 Keli l Trilla Albumin, in mg/dL [facility](D O Urine_ref Not Use ): [address] [facility] Aiyana Sanchez S Normal Creatinine 115 mg/dL 28-217 Final [facility] , Urine mg/dL [facility](D O Not Use): [address] [facility] S Normal Microalbum 12 mg/g <20 mg/g Final [facility] in/creatini Count y [facility] Hospital(D O Not Use): [address] [facility] 01/17/2022 Protein, S Normal Total 7.2 g/dL 6.4-8.3 Final G [facility]field Total, Serum Protein g/dL Cou [facility](D O Not Use): [address] [facility] A[facility] 01/17/2022 Urine_cultur U Normal Urine clean catch Fi nal Trilla e_reflex Source [facility](D O Not Use): [address] [facility] U Normal Micro 10,000-50,0 Final Garfi eld Culture 00 colony [facility] Result [facility]( DO units per Not Use ): 66 mL mixed N [facility] , urogenital Pomero y katherine 09/17/2021 Lipid Panel, P Normal Chol 132.49 100.00-24 Keli l Trilla Blood mg/dL 0.00 [facility] mg/dL Hospital(D O Not Use): [address] [facility] P Low Ahdl 52.00 mg/dL >60.00 Final Garfi eld mg/dL [facility](D O Not Use): [address] [facility] P Normal Trig 91.36 mg/dL 30.00-150 Final [facility] .00 mg/dL [facility](D O Not Use): [address] [facility] P Normal Vldl 18.27 mg/dL Final [facility](D O Not Use): [address] [facility] P Normal Risk 2.55 mg/dL 2.00-5.00 Final Gar field mg/dL [facility](D O Not Use): [address] [facility] P Low Dldl 60.95 mg/dL 70.00-129 Final [facility] .00 mg/dL [facility](D O Not Use): [address] [facility] Aiyana Sanchez 09/17/2021 CMP, Serum S Normal Glu 99 mg/dL 70-110 Final Trilla or Plasma mg/dL [facility](D O Not Use): [address] [facility] Aiyana Sanchez S Normal Bun 17.00 mg/dL 7.00-18.0 Final [place] [facility] 0 mg/dL [facility](D O Not Use): [address] [facility] Aiyana Sanchez Normal Na 143.87 136.00-14 Final [facility] d mmol/L 5.00 [facility] mmol/L [facility](D O Not Use): [address] [facility] Aiyana Sanchez Normal K 4.33 mmol/L 3.50-5.10 Final [facility] mmol/L [facility](D O Not Use): [address] [facility] Aiyana Sanchez Normal Cl 103.99 98.00-107 Final [facility] d mmol/L .00 [facility] mmol/L [facility](D O Not Use): [address] [facility] Aiyana Sanchez High Ec02 32.66 21.00-32. Final [facility] d mmol/L 00 mmol/L [facility](D O Not Use): [address] [facility] Aiyana Sanchez Normal Angap 11.55 7.00-21.0 Final [facility] d mmol/L 0 mmol/L [facility](D O Not Use): [address] [facility] Aiyana Sanchez S Normal Tp 7.00 g/dL 6.00-8.30 Final Garf ield g/dL [facility](D O Not Use): [address] [facility] Normal Glob 3.05 g/dL 2.20-3.30 Final Garf ield g/dL [facility](D O Not Use): [address] Aiyana Sanchez S Normal A/g 1.30 1.00-2.20 Final formerly [facility](D O Not Use): [address] [facility] Normal Tbili 0.43 mg/dL 0.00-1.20 Final [facility] mg/dL [facility](D O Not Use): [address] [facility] Normal Ast 19.51 U/L 13.00-39. Final [facility] U/L [facility](D O Not Use): [address] [facility] Normal Alt 25.43 U/L 14.00-59. Final [facility] U/L [facility](D O Not Use): [address] [facility] Normal Alp 107.74 U/L 46.00-136 Final [facility] field .00 U/L [facility](D O Not Use): [address] [facility] Normal Gfr 86.62 >60.00 Final Trilla mL/min/bsa mL/min/bs [facility] Hospital(D O Not Use): [address] [facility] Normal Gfraa 104.98 >60.00 Final Trilla mL/min/bsa mL/min/bs [facility](D O Not Use): [address] [place] [address] 09/17/2021 Hemoglobin WB Normal A1C 5.8 % 4.5-6.2 % Final Trilla a1C [facility](D O Not Use): [address] [place] [address] 09/17/2021 Cbc WB Normal Wbc 6.47 K/uL 4.50-11.5 Final Trilla 0 K/uL [facility](D O Not Use): [address] [place], [place] [address]eroy WB Normal Rbc 4.71 M/uL 4.00-5.20 Final [facility] ield M/uL [facility](D O Not Use): [address] [facility] WB Normal Hgb 13.7 g/dL 12.0-15.0 Final [facility] ield g/dL [facility](D O Not Use): [address] [place], [place] [address]eroy WB Normal Hct 42.1 % 36.0-48.0 Final [facility] d [facility](D O Not Use): [address] [facility] [place] WB Normal Mcv 89.4 fL 80.0-99.9 Final [facility](D O Not Use): [address] [facility] [place] WB Normal Mch 29.1 pg 26.0-34.0 Final [facility](D O Not Use): [address] [facility] [place] WB Normal Mchc 32.5 g/dL 31.0-36.0 Final [facility] ield g/dL [facility](D O Not Use): [address] [facility] [place] WB Normal Rdw 12.3 % 11.0-16.0 Final [facility](D O Not Use): [address] [facility], Aiyana WB Normal Plt 222 K/uL 140-440 Final [facility](D O Not Use): [address] [facility] [place] WB Normal Mpv 9.4 fL 7.4-10.4 Final [facility](D O Not Use): [address] [facility] [place] WB Normal Neut% 57.9 % 45.0-70.0 Final [facility](D O Not Use): [address] [facility], Aiyana WB Normal Lymph% 30.3 % 15.5-49.0 Final [facility](D O Not Use): [address] [facility], Aiyana WB Normal Canadian% 9.0 % 1.7-9.2 % Final formerly [facility](D O Not Use): [address] [facility], Aiyana WB Normal Eos% 2.0 % 1.0-5.0 % Final formerly [facility](D O Not Use): [address] [facility] [place] WB High Baso% 0.8 % 0.0-0.5 % Final formerly [facility](D O Not Use): [address] [facility] [place] WB Normal Ig% 0.0 % 0.0-72.0 Final [facility](D O Not Use): [address] [facility] [place] WB Normal Neut# 3.75 K/uL 2.00-7.50 Final [facility] ield [facility](D O Not Use): [address] [facility], Aiyana WB Normal Lymph# 1.96 K/uL 1.00-3.40 Final [facility](D O Not Use): [address] [facility] [place] WB Normal Canadian# 0.58 K/uL 0.10-0.60 Final [facility](D O Not Use): [address] [facility] [place] WB Normal Eos# 0.13 K/uL 0.00-0.40 Final [facility](D O Not Use): [address] [facility] [place] WB Normal Baso# 0.05 K/uL 0.00-0.10 Final [facility](D O Not Use): [address] [facility] [place] WB Normal Ig# 0.00 K/uL 0.00-7.00 Final [facility](D O Not Use): [address] [place] [address] 09/17/2021 Vitamin D 25 S Normal Vitamin D, 53 NG/mL >=30 Final [facility] Hydroxy_ref 25 Hydroxy NG/mL [facility](D O Not Use): [address] [place] [address] 09/17/2021 Micro S Normal Microalbum <1.2 mg/dL 0.0-2.0 [facility] Albumin, in mg/dL [facility](D O Urine_ref Not Use ): [address] [place] [address] S Normal Creatinine 96 mg/dL 28-217 Final [facility] , Urine mg/dL [facility](D O Not Use): [address] [place] [address] S Normal Microalbum 12 mg/g <20 mg/g Final [facility] in/creatini Count y ne Hospital(D O Not Use): [address] [place] [address] 09/17/2021 Urine, W/ U Normal Color light-yello yellow Final [facility] Microscopy, w Count y Auto_ref Hospital (DO Not Use): [address] [place] [address] U Normal Clarity clear clear Final [facility](D O Not Use): [address] [place] [address] U Normal Glucose normal normal Final [facility](D O Not Use): [address] [place] [address] U Normal Ketones negative negative Final [facility](D O Not Use): [address] Aiyana Snyder U Normal Bilirubin negative negative Final [facility](D O Not Use): [address] Aiyana Snyder U Normal Specific 1.022 1.005-1.0 Final [facility] [place] [address] [place] [address](D O Not Use): [address] Aiyana Snyder U Normal Ph 7.0 5.0-7.5 Final [facility](D O Not Use): [address] Aiyana Snyder U Normal Blood negative negative Final [facility](D O Not Use): [address] Aiyana Snyder U Normal Protein negative negative Final [facility](D O Not Use): [address] Aiyana Snyder U Normal Urobilinog normal normal Final [facility](D O Not Use): [address] Aiyana Snyder U Normal Nitrite negative negative Final [facility](D O Not Use): [address] Aiyana Snyder U ABNORMAL Leukocyte trace negative Final [facility](D O Not Use): [address] Aiyana Snyder U ABNORMAL White 11-20 #/hpf 0-5 #/hpf Final Trilla Blood Cells [facility](D O Not Use): [address] Aiyana Snyder U Normal Red Blood 0-2 #/hpf 0-2 #/hpf Final [facility](D O Not Use): [address] Aiyana Snyder U Normal Squamous 0-10 #/hpf 0-10 Final [facility] Epithelial #/hpf [facility](D O Not Use): [address] Aiyana Snyder U Normal Bacteria none seen none seen Final [facility] hpf hpf [facility](D O Not Use): [address] Aiyana Snyder U Normal Mucous rare lpf none seen Final [facility] lpf [facility](D O Not Use): [address] Aiyana Snyder U Normal Culture culture to Final [facility] ie Reflex follow [facility](D O Not Use): [address] Aiyana Snyder 09/17/2021 Albumin, S Normal Albumin 3.8 g/dL 3.5-5.2 Final Trilla Serum or g/dL [facility](D O Not Use): [address] Aiyana Snyder 09/17/2021 CK (Creatine S Normal Creatine 45 U/L 20-180 [facility] Kinase), Kinase U/L [facility] Total, Serum Hosp ital(DO Not Use): [address] [facility] 09/17/2021 Calcium, S Normal Calcium, 9.0 mg/dL 8.8-10.2 [facility] Blood Serum mg/dL [facility](D O Not Use): [address] [facility] Aiyana 09/17/2021 Urine_cultur U Normal Urine clean catch Fi nal Trilla e_reflex Source [facility](D O Not Use): [address] [facility] U Normal Micro <10,000 Final Trilla Culture colony [facility] Result [facility]( DO units per Not Use ): 66 mL mixed N [facility] , [facility] 07/30/2021 CMP, Serum P Normal Glu 92 mg/dL 70-110 Final Tr[facility] or Plasma mg/dL [facility](D O Not Use): [address] [facility] P Normal Bun 15.00 mg/dL 7.00-18.0 Final [place] [facility] 0 mg/dL [facility](D O Not Use): [address] [facility] P Normal Crea 0.78 mg/dL 0.30-1.30 Final Gar field mg/dL [facility](D O Not Use): [address] [facility] P Normal Na 143.44 136.00-14 Final Garfiel d mmol/L 5.00 [facility] mmol/[facility](D O Not Use): [address] [facility] P Normal K 4.51 mmol/L 3.50-5.10 Final [place] [facility] mmol/L [facility](D O Not Use): [address] [facility] P Normal Cl 102.99 98.00-107 Final Garfiel d mmol/L .00 [facility] mmol/L [facility](D O Not Use): [address] [facility] P High Ec02 32.18 21.00-32. Final Garfiel d mmol/L 00 mmol/L [facility](D O Not Use): [address] [facility] P Normal Angap 12.78 7.00-21.0 Final Garfiel d mmol/L 0 mmol/L [facility](D O Not Use): [address] [facility] P Normal Ca 8.86 mg/dL 8.10-10.2 Final Gar field 0 mg/dL [facility](D O Not Use): [address] [facility] P Normal Tp 7.14 g/dL 6.00-8.30 Final Garf ield g/dL [facility](D O Not Use): [address] [facility] P Normal Alb 4.00 g/dL 3.40-5.00 Final Garf ield g/dL [facility](D O Not Use): [address] [facility] P Normal Glob 3.14 g/dL 2.20-3.30 Final Garf ield g/dL [facility](D O Not Use): [address] [facility] P Normal A/g 1.27 1.00-2.20 Final [facility](D O Not Use): [address] [facility] P Normal Tbili 0.48 mg/dL 0.00-1.20 Final Gar field mg/dL [facility](D O Not Use): [address] [place] [address] Aiyana P Normal Ast 20.41 U/L 13.00-39. Final Garf ield 00 U/L [facility](D O Not Use): [address] [place] [address] Aiyana Harris Normal Alt 28.12 U/L 14.00-59. Final Garf ield 00 U/L [facility](D O Not Use): [address] [facility] Normal Alp 115.65 U/L 46.00-136 Final Gar field .00 U/L [facility](D O Not Use): [address] [facility] P Normal Gfr 76.48 >60.00 Final Trilla mL/min/bsa mL/min/bs [facility] [address] [facility] P Normal Gfraa 92.69 >60.00 Final Trilla mL/min/bsa mL/min/bs Cou [facility](D O Not Use): [address] [place], [place] [address]eroy 07/30/2021 Vitamin D 25 S Normal Vitamin D, 50 NG/mL >=30 Final [facility] Hydroxy_ref 25 Hydroxy NG/mL C [facility](D O Not Use): [address] [facility] 05/22/2021 CMP, Serum P Normal Glu 94 mg/dL 70-110 Final [facility] or Plasma mg/dL [facility](D O Not Use): [address] [facility] P Normal Bun 15.01 mg/dL 7.00-18.0 Final [place] [facility] 0 mg/dL [facility](D O Not Use): [address] [facility] P Normal Crea 0.72 mg/dL 0.30-1.30 Final Gar field mg/dL [facility](D O Not Use): [address] [facility] P Normal Na 143.47 136.00-14 Final Garfiel d mmol/L 5.00 [facility] mmol/L [facility](D O Not Use): [address] [facility] P Normal K 4.36 mmol/L 3.50-5.10 Final [place] [facility] mmol/L [facility](D O Not Use): [address] [facility] Normal Cl 103.99 98.00-107 Final Garfiel d mmol/L .00 [facility] mmol/L [facility](D O Not Use): [address] [facility] Normal Ec02 31.23 21.00-32. Final Garfiel d mmol/L 00 mmol/L [facility](D O Not Use): [address] [facility] P Normal Angap 12.61 7.00-21.0 Final Garfiel d mmol/L 0 mmol/L [facility](D O Not Use): [address] [facility] Normal Ca 8.91 mg/dL 8.10-10.2 Final Gar field 0 mg/dL [facility](D O Not Use): [address] [facility] P Normal Tp 7.03 g/dL 6.00-8.30 Final Garf ield g/dL [facility](D O Not Use): [address] [facility] P Normal Alb 3.77 g/dL 3.40-5.00 Final Garf ield g/dL [facility](D O Not Use): [address] [facility] P Normal Glob 3.26 g/dL 2.20-3.30 Final Garf ield g/dL [facility](D O Not Use): [address] [facility] Normal A/g 1.16 1.00-2.20 Final formerly [facility](D O Not Use): [address] [facility] P Normal Tbili 0.54 mg/dL 0.00-1.20 Final [facility] field mg/dL [facility](D O Not Use): [address] [facility] Normal Ast 18.08 U/L 13.00-39. Final Garf ield 00 U/L [facility](D O Not Use): [address] [facility] P Normal Alt 27.66 U/L 14.00-59. Final Garf ield 00 U/L [facility](D O Not Use): [address] [facility] Normal Alp 103.43 U/L 46.00-136 Final Gar field .00 U/L [facility](D O Not Use): [address] [facility] P Normal Gfr 83.92 >60.00 Final [facility] mL/min/bsa mL/min/bs [facility](D O Not Use): [address] [facility] Normal Gfraa 101.72 >60.00 Final Trilla mL/min/bsa mL/min/bs [facility](D O Not Use): [address] [facility] 05/22/2021 Lipid Panel, P Normal Chol 123.08 100.00-24 Keli l Trilla Blood mg/dL 0.00 County mg/dL Hospital(D O Not Use): [address] [facility] Low Ahdl 51.00 mg/dL >60.[address] [facility] mg/dL [facility](D O Not Use): [address] [facility] P Normal Trig 86.86 mg/dL 30.00-150 Final [place] [facility] .00 mg/dL [facility](D O Not Use): [address] [facility] P Normal Vldl 17.37 mg/dL Final [facility](D O Not Use): [address] [facility] Normal Risk 2.41 mg/dL 2.00-5.00 Final [facility] field mg/dL [facility](D O Not Use): [address] [facility] P Low Dldl 60.90 mg/dL 70.00-129 Final [place] [facility] .00 mg/dL [facility](D O Not Use): [address] [facility] Aiyana Sanchez 05/22/2021 Cbc WB Normal Wbc 6.77 K/uL 4.50-11.5 Final Trilla 0 K/[facility](D O Not Use): [address] [facility] WB Normal Rbc 4.68 M/uL 4.00-5.20 Final [facility] ield M/uL [facility](D O Not Use): [address] [facility] [place] WB Normal Hgb 13.5 g/dL 12.0-15.0 Final [facility] ield g/dL [facility](D O Not Use): [address] [facility] WB Normal Hct 41.8 % 36.0-48.0 Final [facility](D O Not Use): [address] [facility] WB Normal Mcv 89.3 fL 80.0-99.9 Final [facility](D O Not Use): [address] [facility] WB Normal Mch 28.8 pg 26.0-34.0 Final [facility](D O Not Use): [address] [facility] WB Normal Mchc 32.3 g/dL 31.0-36.0 Final [facility] ield g/dL [facility](D O Not Use): [address] [facility] WB Normal Rdw 13.2 % 11.0-16.0 Final [facility](D O Not Use): [address] [facility] WB Normal Plt 219 K/uL 140-440 Final [facility](D O Not Use): [address] [facility] WB Normal Mpv 9.6 fL 7.4-10.4 Final [facility](D O Not Use): [address] [facility] WB Normal Neut% 56.0 % 45.0-70.0 Final [facility](D O Not Use): [address] [facility] Aiyaan WB Normal Lymph% 31.3 % 15.5-49.0 Final [facility](D O Not Use): [address] [facility] [place] WB High Canadian% 9.6 % 1.7-9.2 % Final formerly [facility](D O Not Use): [address] [facility] WB Normal Eos% 2.4 % 1.0-5.0 % Final formerly [facility](D O Not Use): [address] [facility] [place] WB High Baso% 0.7 % 0.0-0.5 % Final formerly [facility](D O Not Use): [address] [facility] Normal Ig% 0.0 % 0.0-72.0 Final Trilla % [facility](D O Not Use): [address] [facility] Aiyana WB Normal Neut# 3.79 K/uL 2.00-7.50 Final [facility](D O Not Use): [address] [facility] [place] WB Normal Lymph# 2.12 K/uL 1.00-3.40 Final [facility] field [facility](D O Not Use): [address] [facility] [place] WB High Canadian# 0.65 K/uL 0.10-0.60 Final [facility](D O Not Use): [address] [place] [address] WB Normal Eos# 0.16 K/uL 0.00-0.40 Final [facility](D O Not Use): [address] [place] [address] WB Normal Baso# 0.05 K/uL 0.00-0.10 Final [facility](D O Not Use): [address] [facility] [place] WB Normal Ig# 0.00 K/uL 0.00-7.00 Final [facility](D O Not Use): [address] [place] [address] 05/22/2021 Tsh S Normal Tsh 3.111 0.358-3.7 Final [facility] uIU/mL 40 uIU/mL [facility](D O Not Use): [address] [place] [address] 05/22/2021 Urine S Normal Urine clean catch Final G [facility] Culture_ref Source Count y Hospital(D O Not Use): [address] [place] [address] S Normal Micro <10,000 Final Tr[facility] Culture colony [facility] Result [facility]( DO units per Not Use ): 66 mL mixed N [address] , urogenital Pomero y katherine 05/22/2021 Vitamin D 25 S Normal Vitamin D, 47 NG/mL >=30 Final [facility] Hydroxy_ref 25 Hydroxy NG/mL C [facility](D O Not Use): [address] Aiyana 05/22/2021 Urinalysis, U Normal Color yellow yellow Final [facility](D O Not Use): [address] , [place] U Normal Clarity clear clear Final [facility](D O Not Use): [address] [facility], Aiyana U Normal Glucose normal normal Final [facility](D O Not Use): [address] [facility] Normal Ketones negative negative Final [facility](D O Not Use): [address] [facility] Elijah Sanchezy U Normal Bilirubin negative negative Final [facility](D O Not Use): [address] Elijah Snydery U Normal Specific 1.021 1.005-1.[address](D O Not Use): [address] Aiyana U Normal Ph 7.0 5.0-7.5 Final [facility](D O Not Use): [address] Aiyana Snyder U Normal Blood negative negative Final [facility](D O Not Use): [address] [facility] Normal Protein negative negative Final [facility](D O Not Use): [address] Elijah Snydery U Normal Urobilinog normal normal Final [facility](D O Not Use): [address] Elijah Sanchezy U Normal Nitrite negative negative Final [facility](D O Not Use): [address] Elijah aSnchezy U ABNORMAL Leukocyte 3+ negative Final [facility](D O Not Use): [address] , Aiyana U ABNORMAL White 21-50 #/hpf 0-5 #/hpf Final Trilla Blood Cells [facility](D O Not Use): [address] Elijah Sanchezy U Normal Red Blood 0-2 #/hpf 0-2 #/hpf Final [facility](D O Not Use): [address] , Aiyana U Normal Squamous 0-10 #/hpf 0-10 Final Gar field Epithelial #/hpf [facility] Cells [facility](D O Not Use): [address] Aiyana Snyder U Normal Bacteria none seen none seen Final G arfield hpf hpf [facility](D O Not Use): [address] Aiyana Snyder U Normal Mucous rare lpf none seen Final Garf ield lpf [facility](D O Not Use): [address] [facility] Aiyana Sanchez U ABNORMAL Calcium few hpf none seen Final [facility] Oxalate hpf [facility]( DO Not Use): [address] [facility] [place] 05/22/2021 HbA1C S Normal Hgba1C 5.9 % 4.0-6.0 % Final [facility] (Hemoglobin Count y a1C), Blood Hospi dmitry(DO Not Use): [address] [facility] Normal Estimated 122 mg/dL Final Gar field Average [facility] Glucose [facility]( DO Not Use): [address] [facility] Aiyana 05/22/2021 Micro S Normal Microalbum 1.9 mg/dL 0.0-2.0 [facility] Albumin, in mg/dL [facility](D O Urine_ref Not Use ): [address] [facility] Aiyana Sanchez S Normal Creatinine 105 mg/dL 28-217 Final [facility] , Urine mg/dL [facility](D O Not Use): [address] [facility] Normal Microalbum 18 mg/g <20 mg/g Final [facility] in/creatini Count y ne Hospital(D O Not Use): [address] [facility] Aiyana 12/26/2020 Lipid Panel, P Normal Chol 133.95 100.00-24 Keli l Trilla Blood mg/dL 0.00 [facility] mg/dL [facility](D O Not Use): [address] [facility] P Low Ahdl 48.00 mg/dL >60.[address] [facility] mg/dL [facility](D O Not Use): [address] [facility] Normal Trig 118.34 30.00-150 Final [facility] d mg/dL .00 mg/dL [facility](D O Not Use): [address] [facility] Normal Vldl 23.67 mg/dL Final [facility](D O Not Use): [address] [facility] P Normal Risk 2.79 mg/dL 2.00-5.00 Final Gar field mg/dL [facility](D O Not Use): [address] [facility] Low Dldl 67.38 mg/dL 70.00-129 Final [facility] .00 mg/dL [facility](D O Not Use): [address] [facility] 12/26/2020 CMP, Serum P Normal Glu 100 mg/dL 70-110 Final Russel or Plasma mg/dL [facility](D O Not Use): [address] [facility] Normal Bun 16.56 mg/dL 7.00-18.0 Final [facility] 0 mg/dL [facility](D O Not Use): [address] [facility] Normal Crea 0.69 mg/dL 0.30-1.30 Final Gar field mg/dL [facility](D O Not Use): [address] [facility] Normal Na 143.25 136.00-14 [facility] 5.00 [facility] mmol/L [facility](D O Not Use): [address] [facility] Normal K 4.21 mmol/L 3.50-5.10 Final [facility] mmol/L [facility](D O Not Use): [address] [facility] Aiyana Sanchez P Normal Cl 103.54 98.00-107 Final [facility] d mmol/L .00 [facility] mmol/L [facility](D O Not Use): [address] [facility] Normal Ec02 31.10 21.00-32. Final Garfiel d mmol/L 00 mmol/L [facility](D O Not Use): [address] [facility] Aiyana Sanchez P Normal Angap 12.82 7.00-21.0 Final Garfiel d mmol/L 0 mmol/L [facility](D O Not Use): [address] [facility] Aiyana Sanchez P Normal Ca 9.15 mg/dL 8.10-10.2 Final Gar field 0 mg/dL [facility](D O Not Use): [address] [facility] Normal Tp 7.42 g/dL 6.00-8.30 Final Garf ield g/dL [facility](D O Not Use): [address] [facility] Normal Alb 4.20 g/dL 3.40-5.00 Final Garf ield g/dL [facility](D O Not Use): [address] [facility] Normal Glob 3.22 g/dL 2.20-3.30 Final Garf ield g/dL [facility](D O Not Use): [address] [facility] Normal A/g 1.30 1.00-2.20 Final Garfiel d [facility](D O Not Use): [address] [facility] Normal Tbili 0.55 mg/dL 0.00-1.20 Final Gar field mg/dL [facility](D O Not Use): [address] [place] [address] Aiyana Harris Normal Ast 27.79 U/L 13.00-39. Final Garf ield 00 U/L [facility](D O Not Use): [address] [place], [place] [address]eroy Normal Alt 38.33 U/L 14.00-59. Final Garf ield 00 U/L [facility](D O Not Use): [address] [place] [address] Aiyana Harris Normal Alp 115.95 U/L 46.00-136 Final Gar field .00 U/L [facility](D O Not Use): [address] [place] [address] Aiyana Harris Normal Gfr 88.24 >60.00 Final Trilla mL/min/bsa mL/min/bs [facility](D O Not Use): [address] [place] [address] Ayiana Harris Normal Gfraa 106.95 >60.00 Final Trilla mL/min/bsa mL/min/bs [facility](D O Not Use): [address] [place] [address] 12/26/2020 CK (Creatine P Normal Ck 54.50 U/L 26.00-192 F inal Trilla Kinase), .00 U/L [facility] Total, Serum Hosp ital(DO Not Use): [address] [place] [address] 12/26/2020 Culture + No [facility] field Sensitivity, observation [facility] Urine recorded. Hospita l(DO Not Use): [address] [place] [address] 12/26/2020 Urinalysis No [facility] Microscopic observation [facility] Panel, recorded. Hospita l(DO Automated Not Use ): [address] [facility] [place] 12/12/2020 Culture + No Gar [facility] Sensitivity, observation [place] Urine recorded. Hospita l(DO Not Use): [address] Aiyana Snyder 11/16/2020 Cbc WB Normal Wbc 8.15 K/uL 4.50-11.5 Final Trilla 0 K/uL [facility](D O Not Use): [address] [facility] Normal Rbc 4.96 M/uL 4.00-5.20 Final [facility](D O Not Use): [address] [facility] Normal Hgb 14.5 g/dL 12.0-15.0 Final [facility] ield g/dL [facility](D O Not Use): [address] [facility] Normal Hct 43.5 % 36.0-48.0 Final [facility](D O Not Use): [address] [facility] Normal Mcv 87.7 fL 80.0-99.9 Final [facility](D O Not Use): [address] [facility] Normal Mch 29.2 pg 26.0-34.0 Final [facility](D O Not Use): [address] [facility] Normal Mchc 33.3 g/dL 31.0-36.0 Final [facility] ield g/dL [facility](D O Not Use): [address] [facility] Normal Rdw 12.4 % 11.0-16.0 Final [facility](D O Not Use): [address] [facility] Normal Plt 252 K/uL 140-440 Final [facility](D O Not Use): [address] [facility] WB Normal Mpv 10.0 fL 7.4-10.4 Final [facility](D O Not Use): [address] [facility] Normal Neut% 59.0 % 45.0-70.0 Final [facility](D O Not Use): [address] [facility] Normal Lymph% 29.8 % 15.5-49.0 Final [facility](D O Not Use): [address] [facility], Aiyana WB Normal Canadian% 7.7 % 1.7-9.2 % Final [facility](D O Not Use): [address] [facility], [place] WB Normal Eos% 2.9 % 1.0-5.0 % Final [facility](D O Not Use): [address] [facility] [place] WB Normal Baso% 0.5 % 0.0-0.5 % Final formerly [facility](D O Not Use): [address] [facility] Normal Ig% 0.1 % 0.0-72.0 Final [facility](D O Not Use): [address] [facility], [place] WB Normal Neut# 4.80 K/uL 2.00-7.50 Final [facility](D O Not Use): [address] [facility], Aiyana WB Normal Lymph# 2.43 K/uL 1.00-3.40 Final [facility](D O Not Use): [address] [facility] WB High Canadian# 0.63 K/uL 0.10-0.60 Final [facility](D O Not Use): [address] [facility] Normal Eos# 0.24 K/uL 0.00-0.40 Final [facility](D O Not Use): [address] [facility], Aiyana WB Normal Baso# 0.04 K/uL 0.00-0.10 Final [facility](D O Not Use): [address] [facility] WB Normal Ig# 0.01 K/uL 0.00-7.00 Final [facility](D O Not Use): [address] [place] [address] 11/16/2020 Lipid Panel, P Normal Chol 139.80 100.00-24 Keli l Trilla Blood mg/dL 0.00 [facility] mg/dL [facility](D O Not Use): [address] [place] [address] P Low Ahdl 50.00 mg/dL >60.00 Final [facility](D O Not Use): [address] Aiyana Sanchez P Normal Trig 94.97 mg/dL 30.00-150 Final [place] [facility] .00 mg/dL [facility](D O Not Use): [address] [facility] Normal Vldl 18.99 mg/dL [facility](D O Not Use): [address] [facility] Aiyana Sanchez P Normal Risk 2.80 mg/dL 2.00-5.00 Final Gar field mg/dL [facility](D O Not Use): [address] [facility] Aiyana Sanchez P Normal Dldl 107.40 70.00-129 Final Garfiel d mg/dL .00 mg/dL [facility](D O Not Use): [address] [facility] Aiyana Sanchez 11/16/2020 CMP, Serum P Normal Glu 97 mg/dL 70-110 Final Trilla or Plasma mg/dL [facility](D O Not Use): [address] [facility] Aiyana Sanchez P Normal Bun 16.43 mg/dL 7.00-18.0 Final [facility] 0 mg/dL [facility](D O Not Use): [address] [facility] Aiyana Sanchez P Normal Crea 0.78 mg/dL 0.30-1.30 Final Gar field mg/dL [facility](D O Not Use): [address] [facility] Aiyana Sanchez P Normal Na 140.86 136.00-14 Final Garfiel d mmol/L 5.00 [facility] mmol/L [facility](D O Not Use): [address] [facility] Aiyana Sanchez P Normal K 4.18 mmol/L 3.50-5.10 Final [facility] mmol/L [facility](D O Not Use): [address] [facility] Aiyana Sanchez P Normal Cl 100.98 98.00-107 Final Garfiel d mmol/L .00 [facility] mmol/L [facility](D O Not Use): [address] [facility] Aiyana Sanchez P Normal Ec02 29.15 21.00-32. Final Garfiel d mmol/L 00 mmol/L [facility](D O Not Use): [address] [facility] Aiyana Sanchez P Normal Angap 14.91 7.00-21.0 Final Garfiel d mmol/L 0 mmol/L [facility](D O Not Use): [address] [facility] Aiyana Sanchez P Normal Ca 9.13 mg/dL 8.10-10.2 Final Gar field 0 mg/dL [facility](D O Not Use): [address] [facility] Normal Tp 7.19 g/dL 6.00-8.30 Final Garf ield g/dL [facility](D O Not Use): [address] [facility] P Normal Alb 4.11 g/dL 3.40-5.00 Final Garf ield g/dL [facility](D O Not Use): [address] [facility] Normal Glob 3.08 g/dL 2.20-3.30 Final Garf ield g/dL [facility](D O Not Use): N [facility] Normal A/g 1.33 1.00-2.20 Final [facility](D O Not Use): [address] [facility] P Normal Tbili 0.56 mg/dL 0.00-1.20 Final Gar field mg/dL [facility](D O Not Use): [address] [facility] Normal Ast 20.30 U/L 13.00-39. Final Garf ield 00 U/L [facility](D O Not Use): [address] [place] [address] Aiyana P Normal Alt 29.85 U/L 14.00-59. Final Garf ield 00 U/L [facility](D O Not Use): N [facility] Normal Alp 123.04 U/L 46.00-136 Final Gar field .00 U/L [facility](D O Not Use): [address] [facility] Normal Gfr 76.63 >60.00 Final Trilla mL/min/bsa mL/min/bs [facility](D O Not Use): [address] [facility] Normal Gfraa 92.87 >60.00 Final Trilla mL/min/bsa mL/min/bs [facility](D O Not Use): [address] [place] [address] 11/16/2020 CK (Creatine P Normal Ck 35.06 U/L 26.00-192 F inal Trilla Kinase), .00 U/L [facility] Total, Serum Hosp ital(DO Not Use): N [address] [place] [address] 11/16/2020 HbA1C WB Normal A1C 6.0 % 4.5-6.2 % Final Gar field (Hemoglobin Count y a1C), Blood Hospi dmitry(DO Not Use): [address] [facility] [place] 11/16/2020 Culture + No Gar field Sensitivity, observation [place] Urine recorded. Hospita l(DO Not Use): [address] [place] 08/22/2020 Cbc WB Normal Wbc 7.65 K/uL 4.50-11.5 Final Trilla 0 K/uL [facility](D O Not Use): [address] [facility] Normal Rbc 4.90 M/uL 4.00-5.20 Final [facility](D O Not Use): [address] [facility] Normal Hgb 14.0 g/dL 12.0-15.0 Final [facility] ield g/dL [facility](D O Not Use): [address] [facility] Normal Hct 43.6 % 36.0-48.0 Final [facility](D O Not Use): [address] [facility] Normal Mcv 89.0 fL 80.0-99.9 Final [facility](D O Not Use): [address] [facility] Normal Mch 28.6 pg 26.0-34.0 Final [facility](D O Not Use): [address] [facility] Normal Mchc 32.1 g/dL 31.0-36.0 Final [facility] ield g/dL [facility](D O Not Use): [address] [facility] Normal Rdw 12.7 % 11.0-16.0 Final [facility](D O Not Use): [address] [facility] WB Normal Plt 265 K/uL 140-440 Final [facility](D O Not Use): [address] [facility] Normal Mpv 10.1 fL 7.4-10.4 Final [facility](D O Not Use): [address] [facility] Normal Neut% 59.0 % 45.0-70.0 Final [facility](D O Not Use): [address] [facility] [place] WB Normal Lymph% 31.4 % 15.5-49.0 Final [facility](D O Not Use): [address] [facility] Aiyana WB Normal Canadian% 7.5 % 1.7-9.2 % Final formerly [facility](D O Not Use): [address] [facility], Aiy[place] WB Normal Eos% 1.3 % 1.0-5.0 % Final formerly [facility](D O Not Use): [address] [facility] [place]iy[place] WB High Baso% 0.7 % 0.0-0.5 % Final formerly [facility](D O Not Use): [address] [facility] Normal Ig% 0.1 % 0.0-72.0 Final [facility](D O Not Use): [address] [facility] Aiy[place] WB Normal Neut# 4.52 K/uL 2.00-7.50 Final [facility](D O Not Use): [address] [facility] Normal Lymph# 2.40 K/uL 1.00-3.40 Final [facility](D O Not Use): [address] [facility] WB Normal Canadian# 0.57 K/uL 0.10-0.60 Final [facility](D O Not Use): [address] [facility] Normal Eos# 0.10 K/uL 0.00-0.40 Final [facility](D O Not Use): [address] [facility] Normal Baso# 0.05 K/uL 0.00-0.10 Final [facility](D O Not Use): [address] [facility] WB Normal Ig# 0.01 K/uL 0.00-7.00 Final [facility](D O Not Use): [address] [place] [address] Aiyana 08/22/2020 CMP, Serum P Normal Glu 99 mg/dL 70-110 Final Trilla or Plasma mg/dL [facility](D O Not Use): [address] [place] [address] Aiyana P Normal Bun 16.02 mg/dL 7.00-18.0 Final [place] 0 mg/dL [facility](D O Not Use): [address] [place] [address] Aiyana P Normal Crea 0.69 mg/dL 0.30-1.30 Final Gar field mg/dL [facility](D O Not Use): [address] [facility] Normal Na 141.94 136.00-14 Final Garfiel d mmol/L 5.00 [facility] mmol/L Hospital(D O Not Use): [address] [facility] P Normal K 4.26 mmol/L 3.50-5.10 Final [place] [facility] mmol/L [facility](D O Not Use): [address] [facility] P Normal Cl 103.58 98.00-107 Final Garfiel d mmol/L .00 [facility] mmolL [facility](D O Not Use): [address] [place] [address] Aiyana Harris Normal Ec02 30.20 21.00-32. Final Garfiel d mmol/L 00 mmol/L [facility](D O Not Use): [address] [facility] P Normal Angap 12.42 7.00-21.0 Final Garfiel d mmol/L 0 mmol/L [facility](D O Not Use): [address] [place] [address] Aiyana Harris Normal Ca 9.08 mg/dL 8.10-10.2 Final Gar field 0 mg/dL [facility](D O Not Use): [address] [place] [address] Aiyana P Normal Tp 6.88 g/dL 6.00-8.30 Final Garf ield g/dL [facility](D O Not Use): [address] [facility] P Normal Alb 3.76 g/dL 3.40-5.00 Final Garf ield g/dL [facility](D O Not Use): [address] [place] [address] Aiyana P Normal Glob 3.12 g/dL 2.20-3.30 Final Garf ield g/dL [facility](D O Not Use): [address] [place] [address] Aiyana P Normal A/g 1.21 1.00-2.20 Final Garfiel d [facility](D O Not Use): [address] [facility] Normal Tbili 0.58 mg/dL 0.00-1.20 Final Gar field mg/dL [facility](D O Not Use): [address] [facility] P Normal Ast 29.03 U/L 13.00-39. Final Garf ield 00 U/L [facility](D O Not Use): [address] [facility] Normal Alt 48.75 U/L 14.00-59. Final Garf ield 00 U/L [facility](D O Not Use): [address] [facility] P Normal Alp 122.24 U/L 46.00-136 Final Gar field .00 U/L [facility](D O Not Use): [address] [facility] P Normal Gfr 88.33 >60.00 Final Trilla mL/min/bsa mL/min/bs [facility](D O Not Use): [address] [facility] P Normal Gfraa 107.05 >60.00 Final Trilla mL/min/bsa mL/min/bs [facility](D O Not Use): [address] [place] [address] 08/22/2020 TSH, Serum S Normal Tsh 2.119 0.358-3.7 Final Trilla or Plasma uIU/mL 40 uIU/mL Coun [facility](D O Not Use): [address] [place] [address] 08/22/2020 Lipid Panel, P Normal Chol 137.83 100.00-24 Keli l Trilla Blood mg/dL 0.00 [facility] mg/[facility](D O Not Use): [address] [facility] P Low Ahdl 36.00 mg/dL >60.00 Final [facility] mg[facility]dL [facility](D O Not Use): [address] [facility] P Normal Trig 102.16 30.00-150 Final [facility] .[facility] mg/dL [facility](D O Not Use): [address] [facility] P Normal Vldl 20.43 mg/dL Final [facility](D O Not Use): [address] [facility] P Normal Risk 3.83 mg/dL 2.00-5.00 Final [facility] field mg/dL [facility](D O Not Use): [address] [facility] P Normal Dldl 80.82 mg/dL 70.00-129 Final [place] [facility] .00 mg/dL [facility](D O Not Use): [address] [place] [address] 08/22/2020 HbA1C WB Normal A1C 5.9 % 4.5-6.2 % Final [facility] (Hemoglobin Count y a1C), Blood Hospi dmitry(DO Not Use): [address] [place] [address] 08/22/2020 CK (Creatine P Normal Ck 33.81 U/L 26.00-192 F inal Trilla Kinase), .00 U/L [facility] Total, Serum Hosp ital(DO Not Use): [address] [place] [address] 08/22/2020 Urinalysis No Ga [facility] Microscopic observation [facility] Panel, recorded. Hospita l(DO Automated Not Use ): [address] [place] [address] 08/22/2020 Culture + No [facility] Sensitivity, observation [facility] Urine recorded. Hospita l(DO Not Use): [address] [place] [address] 02/01/2020 Lipid Panel, P Normal Chol 154.15 100.00-24 Keli l Trilla Blood mg/dL 0.00 [facility] mg/dL [facility](D O Not Use): [address] [facility] P Low Ahdl 46.00 mg/dL >60.[address] [facility] mg/dL [facility](D O Not Use): [address] [facility] P Normal Trig 85.98 mg/dL 30.00-150 Final Mi rfield .00 mg/dL [facility](D O Not Use): [address] [facility] P Normal Vldl 17.20 mg/dL Final [facility](D O Not Use): [address] [facility] P Normal Risk 3.35 mg/dL 2.00-5.00 Final [facility] mg/dL [facility](D O Not Use): [address] [facility] P Normal Dldl 94.48 mg/dL 70.00-129 Final Mi rfield .00 mg/dL [facility](D O Not Use): [address] [place] [address] 02/01/2020 CMP, Serum P Normal Glu 88 mg/dL 70-110 Final Trilla or Plasma mg/dL [facility](D O Not Use): [address] [facility] P High Bun 19.11 mg/dL 7.00-18.0 Final Mi rfield 0 mg/dL [facility](D O Not Use): [address] [facility] P Normal Crea 0.70 mg/dL 0.30-1.30 Final Gar field mg/dL [facility](D O Not Use): [address] [facility] P Normal Na 140.01 136.00-14 Final Garfiel d mmol/L 5.00 [facility] mmol/L [facility](D O Not Use): [address] [facility] P Normal K 4.47 mmol/L 3.50-5.10 Final [place] [facility] mmol/L [facility](D O Not Use): [address] [facility] P Normal Cl 100.29 98.00-107 Final Garfiel d mmol/L .00 [facility] mmolL [facility](D O Not Use): [address] [facility] P Normal Ec02 30.64 21.00-32. Final Garfiel d mmol/L 00 mmol/L [facility](D O Not Use): [address] [facility] P Normal Angap 13.55 7.00-21.0 Final Garfiel d mmol/L 0 mmol/L [facility](D O Not Use): [address] [facility] P Normal Ca 9.07 mg/dL 8.10-10.2 Final Gar field 0 mg/dL [facility](D O Not Use): [address] [facility] P Normal Tp 7.23 g/dL 6.00-8.30 Final Garf ield g/dL [facility](D O Not Use): [address] [facility] P Normal Alb 4.01 g/dL 3.40-5.00 Final Garf ield g/dL [facility](D O Not Use): [address] [facility] P Normal Glob 3.22 g/dL 2.20-3.30 Final Garf ield g/dL [facility](D O Not Use): [address] [facility] P Normal A/g 1.25 1.00-2.20 Final Garfiel d [facility](D O Not Use): [address] [facility] P Normal Tbili 0.63 mg/dL 0.00-1.20 Final Gar field mg/dL [facility](D O Not Use): [address] [facility] [place] P Normal Ast 20.41 U/L 13.00-39. [facility](D O Not Use): [address] [facility] [place] P Normal Alt 29.64 U/L 14.00-59. Final Garf i[place] 00 U/L [facility](D O Not Use): [address] [facility] [place] P Normal Alp 127.35 U/L 46.00-136 Final Gar field .00 U/L [facility](D O Not Use): [address] [facility] Normal Gfr 87.00 >60.00 Final [place] mL/min/bsa mL/min/bs [facility](D O Not Use): [address] [facility] Normal Gfraa 105.45 >60.00 Final [place] mL/min/bsa mL/min/bs [facility](D O Not Use): [address] [place] [address] 02/01/2020 Vitamin D, No Ga rfield 25-Hydroxy, observation [facility] Total, Serum recorded. H ospital(DO Not Use): [address] [place] [address] 08/02/2019 Cbc WB Normal Wbc 6.98 K/uL 4.50-11.5 Final [place] 0 K/uL [facility](D O Not Use): [address] [place] [address] WB Normal Rbc 4.92 M/uL 4.00-5.20 Final [facility] ield M/uL [facility](D O Not Use): [address] [place] [address] WB Normal Hgb 14.2 g/dL 12.0-15.0 Final [facility] ield g/dL [facility](D O Not Use): [address] [place], [place] [address]y WB Normal Hct 42.4 % 36.0-48.0 Final [facility](D O Not Use): [address] [place] [address] WB Normal Mcv 86.2 fL 80.0-99.[address] [facility] fL [facility](D O Not Use): [address] [place] [address] WB Normal Mch 28.9 pg 26.0-34.[address] [facility] pg [facility](D O Not Use): [address], [place] WB Normal Mchc 33.5 g/dL 31.0-36.0 Final [facility] ield g/dL [facility](D O Not Use): [address] [facility], [place] WB Normal Rdw 12.4 % 11.0-16.0 Final [facility](D O Not Use): [address] [facility], [place] WB Normal Plt 245 K/uL 140-440 Final [facility](D O Not Use): [address] [facility], [place] WB Normal Mpv 9.6 fL 7.4-10.4 Final [facility](D O Not Use): [address] [facility], [place] WB Normal Neut% 60.5 % 45.0-70.0 Final [facility](D O Not Use): [address] [facility], [place] WB Normal Lymph% 30.5 % 15.5-49.0 Final [facility](D O Not Use): [address] [facility], [place] WB Normal Canadian% 6.9 % 1.7-9.2 % Final [facility](D O Not Use): [address] [facility], [place] WB Normal Eos% 1.4 % 1.0-5.0 % Final [facility](D O Not Use): [address] [facility] WB High Baso% 0.6 % 0.0-0.5 % Final [facility](D O Not Use): [address] [facility] WB Normal Ig% 0.1 % 0.0-72.0 Final [facility](D O Not Use): [address] [facility], [place] WB Normal Neut# 4.22 K/uL 2.00-7.50 Final [facility](D O Not Use): [address] [facility], [place] WB Normal Lymph# 2.13 K/uL 1.00-3.40 Final [facility](D O Not Use): [address] [facility], [place] WB Normal Canadian# 0.48 K/uL 0.10-0.60 Final [facility](D O Not Use): [address] [facility] Normal Eos# 0.10 K/uL 0.00-0.40 Final [place] K/uL [facility](D O Not Use): [address] [facility] WB Normal Baso# 0.04 K/uL 0.00-0.10 Final [place] K/uL [facility](D O Not Use): [address] [facility] WB Normal Ig# 0.01 K/uL 0.00-7.00 Final [place] K/uL [facility](D O Not Use): [address] [facility] 08/02/2019 CMP, Serum P Normal Glu 102 mg/dL 70-110 Final [place] or Plasma mg/dL [facility] O Not Use): [address] [facility] Normal Bun 13.02 mg/dL 7.00-18.0 Final [place] 0 mg/dL [facility](D O Not Use): [address] [facility] Normal Crea 0.74 mg/dL 0.30-1.30 Final Gar field mg/dL [facility](D O Not Use): [address] [facility] Normal Na 138.47 136.00-14 Final Garfiel d mmol/L 5.00 [facility] mmol/L [facility](D O Not Use): [address] [facility] [place] P Normal K 4.52 mmol/L 3.50-5.10 Final [place] mmol/L [facility](D O Not Use): [address] [facility] [place] P Normal Cl 102.33 98.00-107 Final Garfiel d mmol/L .00 [facility] mmol/L [facility](D O Not Use): [address] [facility] [place] P Normal Ec02 29.87 21.00-32. Final Garfiel d mmol/L 00 mmol/L [facility](D O Not Use): [address] [facility] [place] P Normal Angap 10.79 7.00-21.0 Final Garfiel d mmol/L 0 mmol/L [facility](D O Not Use): [address] [facility] [place] P Normal Ca 9.16 mg/dL 8.10-10.2 Final Gar field 0 mg/dL [facility](D O Not Use): [address] [facility] Normal Tp 7.23 g/dL 6.00-8.30 Final [place] g/dL [facility](D O Not Use): [address] [facility] Normal Alb 3.75 g/dL 3.40-5.00 Final [place] g/dL [facility](D O Not Use): [address] [facility] High Glob 3.48 g/dL 2.20-3.30 Final [place] g/dL [facility](D O Not Use): [address] [facility] Normal A/g 1.08 1.00-2.20 [facility] [address] [facility] Normal Tbili 0.57 mg/dL 0.00-1.20 Final [place] field mg/dL [facility](D O Not Use): [address] [facility] Normal Ast 18.05 U/L 13.00-39. Final [place] 00 U/L [facility] O Not Use): [address] [facility] Normal Alt 22.61 U/L 14.00-59. Final [place] 00 U/L [facility](D O Not Use): [address] [facility] Normal Alp 126.16 U/L 46.00-136 Final [place] field .00 U/L [facility](D O Not Use): [address] [facility] Normal Gfr 81.71 >60.00 Final [place] mL/min/bsa mL/min/bs Cou [facility](D O Not Use): [address] [facility] Normal Gfraa 99.04 >60.00 Final [place] mL/min/bsa mL/min/bs [facility](D O Not Use): [address] [place] [address] 08/02/2019 TSH, Serum S Normal Tsh 2.881 0.358-3.7 Final [place] or Plasma uIU/mL 40 uIU/mL [facility](D O Not Use): [address] [place] [address] 08/02/2019 Vitamin D, No [place] 25-Hydroxy, observation [place] Total, Serum recorded. [facility]spital(DO Not Use): [address] [place] 02/09/2019 Cbc WB Normal Wbc 8.31 K/uL 4.50-11.5 Final [place] 0 K/uL [facility](D O Not Use): [address] [place] WB Normal Rbc 5.19 M/uL 4.00-5.20 Final [facility] ield M/uL [facility](D O Not Use): [address] [facility], [place] WB Normal Hgb 14.8 g/dL 12.0-15.0 Final [facility] ield g/dL [facility](D O Not Use): [address] [facility] WB Normal Hct 45.1 % 36.0-48.0 Final [facility](D O Not Use): [address] [facility] WB Normal Mcv 86.9 fL 80.0-99.9 Final [facility](D O Not Use): [address] [facility] WB Normal Mch 28.5 pg 26.0-34.0 Final [facility](D O Not Use): [address] [facility] WB Normal Mchc 32.8 g/dL 31.0-36.0 Final [facility] ield g/dL [facility](D O Not Use): [address] [facility] WB Normal Rdw 12.5 % 11.0-16.0 Final [facility](D O Not Use): [address] [facility] WB Normal Plt 240 K/uL 140-440 Final [facility](D O Not Use): [address] [facility] WB Normal Mpv 9.6 fL 7.4-10.4 Final [facility](D O Not Use): [address] [facility] WB Normal Neut% 62.9 % 45.0-70.0 Final [facility](D O Not Use): [address] [facility] WB Normal Lymph% 27.4 % 15.5-49.0 Final [facility](D O Not Use): [address] [facility] WB Normal Canadian% 7.8 % 1.7-9.2 % Final formerly [facility](D O Not Use): [address] [facility], [place] WB Normal Eos% 1.2 % 1.0-5.0 % Final formerly [facility](D O Not Use): [address] [facility], [place] WB High Baso% 0.6 % 0.0-0.5 % Final formerly [facility](D O Not Use): [address] [facility], [place] WB Normal Ig% 0.1 % 0.0-72.0 Final [facility](D O Not Use): [address] [facility], [place] WB Normal Neut# 5.22 K/uL 2.00-7.50 Final [facility](D O Not Use): [address] [facility], [place] WB Normal Lymph# 2.28 K/uL 1.00-3.40 Final [facility](D O Not Use): [address] [facility], [place] WB High Canadian# 0.65 K/uL 0.10-0.60 Final [facility](D O Not Use): [address] [facility] [place] WB Normal Eos# 0.10 K/uL 0.00-0.40 Final [facility](D O Not Use): [address] [facility] Normal Baso# 0.05 K/uL 0.00-0.10 Final [facility](D O Not Use): [address] [facility] [place] WB Normal Ig# 0.01 K/uL 0.00-7.00 Final [facility](D O Not Use): [address] [place] [address] 02/09/2019 CMP, Serum No Ga rfield or Plasma observation Co unty recorded. Hospita l(DO Not Use): [address] [place] [address] 07/21/2018 CMP, Serum P Normal Tp 7.16 g/dL 6.00-8.30 Fin al [place] or Plasma g/dL [facility](D O Not Use): [address] [place] [address] P Normal Ast 17.63 U/L 13.00-39. Final [facility] ield 00 U/L [facility](D O Not Use): [address] [place] [address] P Normal Alb 3.90 g/dL 3.50-5.00 Final [place] g/dL [facility](D O Not Use): [address] [facility] Normal Tbili 0.65 mg/dL 0.00-1.20 Final [place] field mg/dL [facility](D O Not Use): [address] [facility] Normal Ca 9.08 mg/dL 8.10-10.2 Final [place] field 0 mg/dL [facility](D O Not Use): [address] [facility] Normal Ec02 30.85 19.00-31. Final Garf[place] d mmol/L 00 mmol/L [facility] O Not Use): N [facility] Normal Cl 102.91 95.00-112 Final Garfiel d mmol/L .00 [facility] mmol/L [facility](D O Not Use): [address] [facility] Normal Crea 0.71 mg/dL 0.30-1.30 Final [place] field mg/dL [facility](D O Not Use): [address] [facility] Normal Glu 106 mg/dL 70-110 Final Garfiel d mg/dL [facility] O Not Use): N [facility] Normal Alpi 128.47 U/L 50.00-136 Final [place] .00 U/L [facility](D O Not Use): [address] [facility] Normal K 4.33 mmol/L 3.50-5.20 Final [place] mmol/L [facility](D O Not Use): [address] [facility] Normal Na 139.32 132.00-14 Final Garfiel d mmol/L 3.00 [facility] mmol/L [facility](D O Not Use): [address] [facility] Normal Alti 26.26 U/L 7.00-52.0 Final [place] 0 U/L [facility](D O Not Use): [address] [facility] Normal Bun 13.89 mg/dL 6.00-21.0 Final [place] 0 mg/dL [facility](D O Not Use): [address] [facility] Normal A/g 1.20 1.00-2.20 Final [facility] d [facility](D O Not Use): [address] [facility] P Normal Glob 3.26 g/dL 2.20-3.30 Final [place] g/dL [facility](D O Not Use): [address] [facility] Normal Agap 9.89 mmol/L 7.00-21.0 Final [place] 0 mmol/L [facility](D O Not Use): [address] [facility] Normal Gfr 84.97 >60.00 Final [place] mL/min/bsa mL/min[facility] N [address] [place] [address] 07/21/2018 Lipid Panel, P Normal Chol 142.35 <200.00 Final [place] Blood mg/dL mg/dL [facility](D O Not Use): [address] [facility] Normal Ahdl 41.00 mg/dL >40.[address] [facility] mg/dL [facility](D O Not Use): [address] [facility] Normal Trig 100.46 30.00-150 Final [facility] d mg/dL .00 mg/dL [facility](D O Not Use): [address] [place] [address] A[place] Harris Normal Vldl 20.09 mg/dL Final [facility](D O Not Use): N [facility] Normal Risk 3.47 mg/dL 2.00-5.00 Final [facility] field mg/dL [facility](D O Not Use): [address] [place] [address] [place] P Normal Dldl 80.17 mg/dL 70.00-110 Final [place] .00 mg/dL [facility](D O Not Use): [address] [place] [address] Past Encounters 06/12/2022 Constipation; Abdominal Pain Angelita Partida MD: [address] [place] [phone], Ph. 05/08/2022 Binh Dove DPT: [address] [place] [phone], Ph. 05/06/2022 Pain of Right Shoulder Joint Angelita Partida MD: [address] [place] [phone], Ph. 03/12/2022 Hypertensive Disorder; Hyperlipidemia; O steoporosis; Vitamin D Deficiency; Mixed Anxiety and Depressive Disorder; Calcification of Coronary Artery; Screening for Malignant Neoplasm of Breast; Screening for Malignant Neoplasm of Colon; Microsc opic Hematuria; Bronchiolitis; Pain of Right Shoulder Joint Angelita Partida MD: [address] [place] [phone], Ph. 09/25/2021 Hypertensive Disorder; Hyperlipidemia; M ixed Anxiety and Depressive Disorder; Vitamin D Deficiency; Calcification of Coronary Artery; Osteoporosis; Carotid Atherosclerosis; Administration of Influenza Vaccine Angelita Partida MD: [address] [place] [phone], Ph. 07/02/2021 Osteoporosis; Screening for Malignant Ne oplasm of Breast Angelita Partida MD: [address] [place] [phone], Ph. 05/27/2021 Microscopic Hematuria; Microalbuminuria; Calcification of Coronary Artery; Hypertensive Disorder; Hyperlipidemia; Mixed Anxiety and Depressive Disorder; Osteopenia; Vitamin D Deficiency; Bronchiolitis; Screening for Malignant Neoplasm of [place] [address]; Postmenopausal State; Screening for Malignant Neoplasm of Colon; Administration of Tetanus Vaccine; Administration of Viral Vaccine Angelita Partida MD: [address] [place] [phone], Ph. 04/08/2021 Verruca Plantaris Angelita Partida MD: [address] [place] [phone], Ph. 04/01/2021 Herpesvirus Infection ESTEVAN OrozcoC: [address] [place] [phone], Ph. 03/28/2021 Herpesvirus Infection ESTEVAN OrozcoC: [address] [place], [place] [address], [place] [phone], Ph. 01/09/2021 Microscopic Hematuria; Microalbuminuria; Calcification of Coronary Artery; Hypertensive Disorder; Hyperlipidemia; Bronchiolitis; Mixed Anxiety and Depressive Disorder; Vitamin D Deficiency; Pulmonary Hypertension Angelita Partida MD: [address] [place] [address], Ph. Social History Tobacco Smoking Status Never Smoker Vaccine List Vaccine Type COVID-19, mRNA, LNP-S, PF, 100 mcg/0.5 m L dose (Moderna) 10.5 mL 12/14/2020.25 mL influenza, high dose seasonal 08/17/20180.5 mL 02/09/20190.5 mL 08/03/20190.5 mL influenza, high-dose, quadrivalent .7 mL 10.7 mL influenza, injectable, quadrivalent 09/18/2012 pneumococcal conjugate PCV 13 05/13/2018 pneumococcal polysaccharide PPV23 07/30/20200.5 mL Td (adult) 10/19/1998 Td (adult) preservative free .5 mL zoster recombinant 0.5 mL Plan of Care Patient Goals ST. Improve strength by 1/2 grade 2. Full R shoulder PROM compared to L 3. Use of HEP to decrease sx's LT. Pain 3/10 at worst 2. Good R shoulder AROM compared to L 3. Improve strength by 1 full grade 4. Independent w/ HEP for self managemen t of sx's Reminders Provider Appointments None recorded. Lab None recorded. Referral None recorded. Procedures None recorded. Surgeries None recorded. Imaging None recorded. Vitals 06/12/2022 07:30AM Follow Up 45 Height Weight BMI Blood Pressure 5 ft 2.5 in 224 lbs 40.3 kg/m2 122/70 mm[Hg] 05/06/2022 03:30PM Follow Up 45 Height Weight BMI Blood Pressure 5 ft 2.5 in 228 lbs 41 kg/m2 130/68 mm[Hg] 03/12/2022 02:45PM Follow Up 45 Height Weight BMI Blood Pressure 5 ft 2.5 in 230 lbs 41.4 kg/m2 138/72 mm[Hg] 09/25/2021 01:15PM Follow Up 45 Height Weight BMI Blood Pressure 5 ft 2.5 in 235 lbs 42.3 kg/m2 124/70 mm[Hg] 07/02/2021 03:30PM Follow Up 45 Height Weight BMI Blood Pressure 5 ft 2.5 in 237 lbs 42.7 kg/m2 132/80 mm[Hg] 05/27/2021 01:15PM Follow Up 45 Height Weight BMI Blood Pressure 5 ft 2.5 in 236 lbs 42.5 kg/m2 130/72 mm[Hg] 04/08/2021 03:30PM Same Day 45 Height Blood Pressure 5 ft 2.5 in 130/60 mm[Hg] 04/01/2021 02:45PM Follow Up 45 Height Weight BMI Blood Pressure 5 ft 2.5 in 226 lbs 40.7 kg/m2 132/70 mm[Hg] 03/28/2021 02:45PM Same Day 45 Height Weight BMI Blood Pressure 5 ft 2.5 in 226 lbs 40.7 kg/m2 130/76 mm[Hg] 01/09/2021 01:15PM Follow Up 45 Height Weight BMI Blood Pressure 5 ft 2.5 in 231 lbs 41.6 kg/m2 132/80 mm[Hg] 11/28/2020 10:30AM Follow Up 45 Height Weight BMI Blood Pressure 5 ft 2.5 in 229 lbs 41.2 kg/m2 124/72 mm[Hg] 10/17/2020 10:30AM Follow Up 45 Height Weight BMI Blood Pressure 5 ft 2.5 in 229 lbs 41.2 kg/m2 136/78 mm[Hg] 08/22/2020 03:30PM Same Day 45 Height Weight BMI Blood Pressure 5 ft 2.5 in 230 lbs 41.4 kg/m2 128/70 mm[Hg] 07/30/2020 01:30PM NEW PATIENT 60 Height Weight BMI Blood Pressure 5 ft 2.5 in 231 lbs 41.6 kg/m2 132/80 mm[Hg] 02/06/2020 02:00PM CHRONIC DISEASE VISIT Height Weight BMI Blood Pressure 5 ft 2.5 in 231 lbs 41.6 kg/m2 128/70 mm[Hg] 08/03/2019 10:30AM CHRONIC DISEASE VISIT Height Weight BMI Blood Pressure 5 ft 2.5 in 232 lbs 41.8 kg/m2 128/74 mm[Hg] 03/30/2019 02:00PM ESTABLISHED PATIENT 30 Height Weight BMI Blood Pressure 5 ft 2.5 in 232 lbs 41.8 kg/m2 118/80 mm[Hg] 02/09/2019 11:00AM CHRONIC DISEASE VISIT Height Weight BMI Blood Pressure 5 ft 2.5 in 237 lbs 42.7 kg/m2 144/82 mm[Hg] 08/17/2018 11:00AM CHRONIC DISEASE VISIT Height Weight BMI Blood Pressure 5 ft 2.5 in 228 lbs 41 kg/m2 130/68 mm[Hg]
--- OUTSIDE RECORDS SUMMARY | 2022-06-13 04:55 | External Medical Summary | Encounter Summary ---
:1945 Author Care Team Providers Name Role Phone Harvinder Partida MD Primary Care Provider [phone] R Marco A Herron MD Vacuum Technician [phone] [facility] Optometry Fruit Washer [phone] Reason for Visit Right shoulder problem Assessment and Plan Assessment Note Assessment: Asiya sx's are consistent w/ rotator cuff impingement likely brought on by rotator cuff weakness, joint hypomobility, and muscle tightness. She will benefit from skilled therapy to address these deficits and restore normal joint motion. Plan: Therapy Recommended 1-2x /week for a duration of 8 weeks. Therapy to include: manual therapy, ther apeutic exercise, neurological re- education, posture training, and modalities: as indicated Discussion Note: None recorded.Patient educational handouts: No information available. Plan of Care Patient Goals ST. Improve strength by 1/2 grade 2. Full R shoulder PROM compared to L 3. Use of HEP to decrease sx's LT. Pain 3/10 at worst 2. Good R shoulder AROM compared to L 3. Improve strength by 1 full grade 4. Independent w/ HEP for self managemen t of sx's Reminders Provider Appointments Follow up 45 06/16/2022 9:00AM Harvinder Partida MD Follow up 45 06/19/2022 10:30AM Harvinder Partida MD Chronic Disease Visit on or around Yousif Partida, 09/12/2022 Follow up 45 09/15/2022 11:15AM Harvinder Partida MD Lab None recorded. Referral None recorded. Procedures None recorded. Surgeries None recorded. Imaging None recorded. Medications Name Start Date albuterol sulfate 2.5 mg/3 mL (0.083 %) solution for n ebulization Inhale 3 mL 4 times a day by nebulization route as di rected. albuterol sulfate HFA 90 mcg/actuation aerosol inhaler Inhale 2 puff by inhalation route every 4 - 6 hours a s needed alendronate 70 mg tablet Take one (1) tablet by mouth every week aspirin 81 mg tablet,delayed release Take 1 tablet every day by oral route. brimonidine 0.2 % eye drops Instill 1 drop every day by ophthalmic route in the [facility] for 30 days. Calcium 500 Take 500 mg twice daily. Cartia XT 180 mg capsule,extended release Take 1 capsule by mouth daily. escitalopram 20 mg tablet Take one (1) tablet by mouth once daily fluorouracil 5 % topical cream fluticasone propionate 50 mcg/actuation nasal spray,iniguez spension [place] 1 - 2 spray by intranasal route every day in [facility] nostril as needed latanoprost 0.005 % eye drops Instill 1 drop [facility]. loratadine 10 mg tablet Take one (1) tablet by mouth once daily losartan 100 mg tablet Take 1 tablet every day by oral route. Multiple Vitamins take one daily rosuvastatin 20 mg tablet Take one (1) tablet by mouth once daily spironolactone 25 mg tablet Take 1 tablet every day by oral route for 90 days. triamcinolone acetonide 0.1 % topical ointment Apply 1 application every day by topical route for 14 days. Vitamin D3 25 mcg (1,000 unit) capsule Take 1 capsule every day by oral route. Medications Administered None recorded. Vitals None recorded. Results Lab Results None recorded. Allergies Code Code System Name Reaction Severity Onset Penicillins Rash Mild Notes: Keflex ok. 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 Osteoporosis Active 06/10/2021 Carotid Atherosclerosis Active 06/19/2021 Procedures Date Name Performed by Total Knee Arthroplasty Information not available Notes: Bilateral 2008, 2009 Vaccine List Vaccine Type COVID-19, mRNA, LNP-S, PF, 100 mcg/0.5 m L dose (Moderna) 10.5 mL 12/14/2020 20.25 mL influenza, high dose seasonal 08/17/20180.5 mL 02/09/20190.5 mL 08/03/20190.5 mL influenza, high-dose, quadrivalent 08/22/20200.7 mL 10.7 mL influenza, injectable, quadrivalent 09/18/2012 pneumococcal conjugate PCV 13 05/13/2018 pneumococcal polysaccharide PPV23 07/30/20200.5 mL Td (adult) 10/19/1998 Td (adult) preservative free .5 mL zoster recombinant 0.5 mL Social History Tobacco Smoking Status Never Smoker What is your level of alcohol consumption? None Do you or have you ever used smokeless tobacco? Never used s mokeless tobacco Which illicit or recreational drugs have you none used? What is your code status? 0 Have you been to an area known to be high risk N for COVID-19? How much tobacco do you chew? none What was the date of your most recent tobacco 08/17/2018 screening? Do you or have you ever used e-cigarettes or Never used elec tronic cigarettes vape? What is your level of caffeine consumption? Moderate How many years have you used illicit or 0 recreational drugs? How many years have you smoked tobacco? 0 Family History Relation Problem Onset Age of Age Notes Brother Disorder of coronary (No N/A (No Not es) artery Information) Brother Family history of cancer (No N/A col on Information) Brother Diabetes mellitus (No N/A (No Notes) Information) Brother Hyperlipidemia (No N/A (No Notes) Information) Brother Morbid obesity (No N/A (No Notes) Information) Father Myocardial infarction (No N/A (No No krishna) Information) Father Alcohol abuse (No N/A (No Notes) Information) Father Heart disease (No N/A (No Notes) Information) Father Cerebrovascular accident (No N/A (No Notes) Information) Mother Cerebrovascular accident (No N/A (No Notes) Information) Mother Hypertensive disorder (No N/A (No No krishna) Information) Maternal Grandmother Family history of cancer (No N/A ovarian Information) Functional Status Unknown. Past Encounters 05/08/2022 Binh Dove DPT: [address] [place] [address], Ph. 05/06/2022 Pain of Right Shoulder Joint Harvinder Partida MD: [address] [place] [address], Ph. History of Present Illness PT Initial Subjective [[facility]] Reported By: Patient HPI: History: chief complaint:, d uration:. Date of Injury: gradual onset. Mechanism of Injury: unknown . Location: shoulder right side(s). Pain Intensity and Frequency high est pain level in the past two weeks 8/10, lowest pain level in the pas t two weeks 0/10. Quality: burning. Aggravating Factors: pushing /pulling, carrying, lifting, reaching, overhead activities; primari ly only has pain during movement. Alleviating Factors: resting . Radiation of Pain: not present. Associated Musculoskeletal Symptoms: no joint swelling, arthralgias, joint stiffness, joint tenderness. Sleep Status: no difficulty sleeping due to pain. Prior History: no john lar problems in the past. Prior Studies: x ray. Prior Treatments: none. Work: retired. Peripheral Symptoms denies any peripheral symptoms. Sym ptoms Since Onset Remained the same Review of Systems None recorded. Physical Exam [[place]] PT Initial Evalua tion Reported By: Patient Observation: Posture rounded shoulders, i ncreased thoracic kyphosis Shoulder: ROM - left Flexion (106 ), A bduction (110 ), IR (60 ), ER (95 ). ROM - right Flexion (100 ), Abduct ion (110 ), IR (53 ), ER (58 ). Strength - left Flexion (3/5 ), Abducti on (3/5 ), IR (4/5 ), ER (3+/5 ). Strength - right Flexion (3/5 ), Abduct ion (3/5 ), IR (3+/5 ), ER (3/5 ). Accessory Motion Hypomobile. Special T ests Gray-Jeremy +R, Empty Can +R Treatments: Treatments: ; Stretching to increase shoulder flex and ER. STM of posterior cuff while on slac k and light stretch. Pt instructed in and performed scaption in trunk forward lean, shoulder IR w/ YTB, shoulder ER w/ YTB, and shoulder ER s tretch in doorway. Time in & out: ; [id number]
--- OUTSIDE RECORDS SUMMARY | 2022-06-13 04:55 | External Medical Summary ---
:1945 Author Care Team Providers Name Role Phone ANGELITA GALICIA Primary Care Provider [phone] Allergies Code Code System Name Reaction Severity Status Onset NKDA Medications Name Status Start Date Stop Date albuterol sulfate HFA 90 mcg/actuation aerosol inhaler Active Not available atorvastatin 10 mg tablet Completed 2019 atorvastatin 20 mg tablet Active Not av ailable brimonidine 0.2 % eye drops Active Not available diltiazem CD 120 mg capsule,extended release 24 hr Active Not available escitalopram 20 mg tablet Active Not av ailable fluticasone propionate 50 mcg/actuation nasal Active Not available spray,suspension latanoprost 0.005 % eye drops Active No t available losartan 100 mg tablet Active Not avail able spironolactone 25 mg tablet Active Not available Suprep Bowel Prep Kit 17.5 gram-3.13 gram-1.6 gram oral solution Completed 09/12/2020 take as directed by physician office triamcinolone acetonide 0.1 % topical ointment Active Not available Problems Name Status Onset Date Source Bronchiolitis Active 08/23/2020 Hyperlipidemia Active 09/12/2020 Depressive Disorder Active 09/12/2020 Glaucoma Active 09/12/2020 Hypertensive Disorder Active 09/12/2020 Paroxysmal Atrial Fibrillation Active 09/12/2020 Allergic Rhinitis Active 09/12/2020 Chronic Atelectasis Active 09/12/2020 Disorder of Diaphragm Active 09/12/2020 Peripheral Edema Active 09/12/2020 Procedures Date Name Performed by Knee Arthroscopy/surgery Information not available Notes: x2, 2009, 200910/06/2018 Unlisted Imaging Order [facility] py [address] [place] [address] (Work Place) Results Lab Results None recorded. Past Encounters None recorded. Social History Tobacco Smoking Status Never Smoker Vaccine List Vaccine Type influenza, injectable, quadrivalent 07/19/2020 Pneumococcal Conjugate, unspecified form ulation 07/19/2020 Plan of Care Reminders Provider Appointments None recorded. Lab None recorded. Referral None recorded. Procedures None recorded. Surgeries None recorded. Imaging None recorded. Vitals Height Weight BMI Blood Pressure 5 ft 4 in 225 lbs 38.6 kg/m2 144/76 mm[Hg]
--- OUTSIDE RECORDS SUMMARY | 2022-06-13 04:55 | External Medical Summary | Encounter Summary ---
:1945 Author Care Team Providers Name Role Phone Harvinder Partida MD Primary Care Provider [phone] R Marco A Herron MD Research And Development Tester [phone] [facility] Optometry Mission Support Specialist [phone] Reason for Visit None recorded. Assessment and Plan Assessment Note Patient presents today for follow-up on right shoulder pain. I saw her for this on March 12, unfortunately she did not have h er x-ray performed until April 23. X-ray revealed mild AC DJD and moderate sized anteriorly directed subacromial spur. At her last appointment I ordered physical design engineer apy, unfortunately she also is not scheduled to start it until this coming . Vital signs including blood pressure are acceptable. He finally scheduled follow- up appointment with her granite polisher on May 21. I advised her I do not want he r having her colonoscopy until she has completed cardiology work-up/stress test that was requested last year. Patient denies fevers or chills, nausea or vomiting, ch est pain or shortness of breath, diaphoresis, diarrhea or constipation, or cough. 1. Pain of right shoulder joint He has history of chronic right shoulde r discomfort, examination is essentially the same as it was at her last appointment. Unfortunately she has waited almost 2 months to have her x-ray performed and physical therapy initiated. She is starting physical therapy this coming , I advised her to please call/follow-up if symptoms worsen at any time or if shoulder pain h as not resolved over the next 2 to 3 weeks. If she has persistent shoulder discomfor t we will need to consider MRI and/or orthopedic evaluation. Patient has compl ete understanding, is appreciative, and advised me that she will call back if sh e is still symptomatic in 2 to 3 weeks or sooner if worse. Discussion Note As above. Patient educational handouts: No information available. Plan of Care Reminders Provider Appointments Follow up 45 06/16/2022 9:00AM Harvinder Partida MD Follow up 45 06/19/2022 10:30AM Harvinder Partida MD Chronic Disease Visit on or around [facility] Alexis Partida, 09/12/2022 Follow up 45 09/15/2022 11:15AM [...] every day by ophthalmic route in the [facility] for 30 days. Calcium 500 Take 500 mg twice daily. Cartia XT 180 mg capsule,extended release Take 1 capsule by mouth daily. escitalopram 20 mg tablet Take one (1) tablet by mouth once daily fluorouracil 5 % topical cream fluticasone propionate 50 mcg/actuation nasal spray,iniguez spension [place] 1 - 2 spray by intranasal route every day in ch nostril as needed latanoprost 0.005 % eye drops Instill 1 drop every day by ophthalmic route in the e [facility] for 28 days. loratadine 10 mg [...] oral route. Medications Administered None recorded. Vitals Height Weight BMI Blood Pressure 5 ft 2.5 in 228 lbs 41 kg/m2 130/68 mm[Hg] Results Lab Results None recorded. Allergies Code [...] ovarian Information) Functional Status Unknown. Past Encounters 05/06/2022 Pain of Right Shoulder Joint Harvinder Partida MD: [address] [place] [address], Ph. History of Present Illness Note: <p>Please see assessment and plan below, HPI will be included also under the A/P heading.
</p> Review of Systems [Global] Comprehensive ROS Reported By: Patient Constitutional: Constitutional: no fever, no night sweats, weight loss (2 lbs) Eyes: Eyes: no vision change, no i rritation Ear, Nose, Mouth, Throat: Ears: no difficulty hearing, no ear pain. Nose: no sinus problems. Mouth/Throat: no s ore throat, no snoring, no dry mouth, no oral abnormalities Cardiovascular: Cardiovascular: no palpitati ons, no known heart murmur, no chest pain, shortness of shadi ath when walking; Chronic and stable Respiratory: Respiratory: no cough, no wh eezing, no coughing up blood, shortness of breath; Chronic and stable Gastrointestinal: Gastrointestinal: no abdomin al pain, no nausea, no vomiting, no constipation, n ormal appetite, no diarrhea, no dyspepsia Genitourinary: Genitourinary: no incontinen ce, no difficulty urinating, no hematuria, no increased freq uency Integumentary: Skin: no rashes Musculoskeletal: Musculoskeletal: no back jus n, no swelling in the extremities, muscle aches, a rthralgias/joint pain; Right shoulder pain Psychiatric: Psychiatric: no sleep distur bances, feeling safe in a relationship, no alcohol abu se, no anxiety, no suicidal thoughts, depression Neurologic: Neurologic: no loss of consc iousness, no weakness, no numbness, no dizziness, no h eadaches Hematologic/Lymphatic: Hematologic/Lymphatic no swo llen glands, no bruising, no excessive bleeding Allergic/Immunologic: Allergy/Immunologic: no seas onal allergies Physical Exam [Global] Comprehensive PE Reported By: Patient Constitutional: General Appearance: healthy- appearing, well-developed, morbidly obese. Level of Distress: no apparent distress. Ambulation: ambulating normally Head: Head: normocephalic, atrauma tic Eyes: Lids and Conjunctivae: non-i njected left eye, non-inject right eye, conjunctiva clear left, conj unctiva clear right. Extraocular Movement: intact left eye, i ntact right eye. Lens: clear left eye, clear right eye. Sclerae: no n-icteric: both ENMT: Ears: left external auditory canal clear, right external auditory canal clear, left tympanic m embrane clear, right tympanic membrane clear. Nose: nares patent, n o sinus tenderness, no nasal discharge. Lips, Teeth, and Gums: no mo uth or lip ulcers, no bleeding gums, normal dentition. Oropharynx : moist mucous membranes, no erythema, no exudates, tonsils not enl arged Neck: Neck: supple, trachea midlin e, no masses. Thyroid: no enlargement, symmetrical, non-tender, no palpable nodes Respiratory: Respiratory effort: unlabore d respirations, no use of accessory muscles. RUL Auscultation: b reath sounds normal, good air movement, clear to auscultation except as noted, no wheezing, no rales/crackles, no rhonchi. RLL Auscultation: breath sounds normal, good air movement, clear to auscultation except as noted, no wheezing, no rales/crackles, no rhonchi. DEBRA Auscultation: breath sounds normal, good air move ment, clear to auscultation except as noted, no wheezing, no rales /crackles, no rhonchi. LLL Auscultation: breath sounds normal, good air movement, clear to auscultation except as noted , no wheezing, no rales/crackles, no rhonchi Cardiovascular: Heart Auscultation: regular rate and rhythm (RRR), normal S1, normal S2, no murmurs, no ru bs. Neck vessels: no carotid bruits Gastrointestinal: Bowel Sounds: ; Bowel sounds normal. Inspection and Palpation: no guarding, no rebound tendern ess, no masses, no costovertebral angle (CVA) tenderness: bilateral; Soft and nontender. Bowel sounds normal. No masses or organom egaly. Hernia: none palpable Lymphatic: Palpation: no cervical lymph adenopathy on the left, no cervical lymphadenopathy on the right Musculoskeletal:: Gait and Station: normal gai t. Motor Strength and Tone: normal tone. Joints, Bones, and Mus cles: limited range of motion, tenderness; She does have te nderness to palpation involving the anterior, posterior, and lat eral aspect of the right shoulder. No redness or swelling. No palp able abnormality/dislocation. Good compounder strength with no evidence of neurovascular compromise. Sh has limited abduction, this impr oves with assistance. Positive empty can sign with limitation to internal rotation. Apprehension sign equivocal. Extremities: no e steven Skin: Inspection and palpation: no rash, normal turgor Neurologic: Orientation: oriented to per son, place, time and situation. Memory: recent memory normal, remote memory normal Psychiatric: Insight: good insight, good judgment. Mental Status: normal mood, normal affect
--- OUTSIDE RECORDS SUMMARY | 2022-06-13 04:55 | External Medical Summary | Encounter Summary ---
:1945 Author Care Team Providers Name Role Phone Harvinder Partida MD Primary Care Provider [phone] R Marco A Herron MD Systems Technician [phone] [facility] Optometry Commercial Account Executive [phone] Reason for Visit None recorded. Assessment and Plan Assessment Note Patient presents today for evaluation o f persistent constipation. He states she has not had a "normal" bowel movement in 2 t o 3 weeks. At home she had previously tried magnesium citrate, milk of magnesia, etc . She tried a fleets enema 2 days ago and had a very small BM with "watery stool". She was seen just 1 week ago in the emergency department for this condition and was ad vised to use Senokot and MiraLAX twice daily, she states she really just started this regimen this past Thursday. She had negative abdominal x-ray with no evidence of obst ruction and there was no significant stool burden. He states that she has actually "cut back" on her food consumption because she thought this might help. She is tryi ng to stay well-hydrated. She denies melena, hematochezia, or tenesmus. No GERD or ea rly satiety. No symptoms suggestive of dysphagia. No fevers or chills, nausea o r vomiting, chest pain or shortness of breath, diaphoresis, abdominal distentio n, diarrhea, or cough. 1. Constipation Patient has had persistent constipation over the past 2 to 3 weeks. She already tried fleets enema about 2 days ago with minimal results. I have advised her to continue senna and MiraLAX twice daily. Stay well-hydrated. She could also consume 6 to 8 ounces of prune juice once daily. Tyrone velez will check appropriate laboratories this morning. She is scheduled for her colono scopy on July 02, I am going to speak with gastroenterology this morning to se velez if this can be moved up and if they have any other suggestions pending work-up. W ith her history of constipation and pain we are going to check a stat CT of the abdo men/pelvis with contrast mild mass, rule out obstruction, rule out diverticulitis. If symptoms worsen she was advised to go back to the emergency department. I will see her back in 1 week for follow-up, sooner as needed or pending work-up/response to tr eatment. CBC CMP, serum or plasma urinalysis, dipstick, auto TSH, serum, reflex free T4 2. Abdominal pain As above. lipase, serum or plasma CT, abdomen + pelvis, w/ contrast - H istory of abdominal pain, constipation, r/o mass r/o bowel obstruction r/o diverticu litis. Discussion Note: None recorded.Patient educational handouts: No information available. Plan of Care Reminders Provider Appointments Follow up 45 06/16/2022 9:00AM Harvinder Partida MD Follow up 45 06/19/2022 10:30AM Harvinder Partida MD Chronic Disease Visit on or around [facility] Alexis Partida, 09/12/2022 Follow up 45 09/15/2022 11:15AM Harvinder Partida MD Lab Cbc 06/12/2022 [facility] New Laboratory T est CMP, Serum or Plasma 06/12/2022 [facility] New Laboratory T est Urinalysis, Dipstick, 06/12/2022 [facility] Auto New Laboratory T est TSH, Serum, Reflex 06/12/2022 [facility] Free T4 New Laboratory T est Lipase, Serum or 06/12/2022 [facility] Plasma New Laboratory T est Referral None recorded. Procedures None recorded. Surgeries None recorded. Imaging CT, Abdomen + Pelvis, 06/12/2022 [facility] Medications Name Start Date albuterol sulfate 2.5 mg/3 mL (0.083 %) solution for n ebulization Inhale 3 mL 4 times a day by nebulization route as di pritesh. albuterol sulfate HFA 90 mcg/actuation aerosol inhaler Inhale 2 puff by inhalation route every 4 - 6 hours a s needed alendronate 70 mg tablet Take one (1) tablet by mouth every week aspirin 81 mg tablet,delayed release Take 1 tablet every day by oral route. brimonidine 0.2 % eye drops Instill 1 drop every day by ophthalmic route in the [facility] for 30 days. Calcium 500 Take 500 mg twice daily. Cartia XT 180 mg capsule,extended release Take 1 capsule by mouth daily. escitalopram 20 mg tablet Take one (1) tablet by mouth once daily fluorouracil 5 % topical cream fluticasone propionate 50 mcg/actuation nasal spray,iniguez spension [place] 1 - 2 spray by intranasal route [facility] nostril as needed latanoprost 0.005 % eye drops Instill 1 drop every day by ophthalmic route in the [facility] for 28 days. loratadine 10 mg [...] in 224 lbs 40.3 kg/m2 122/70 mm[Hg] Results Lab Results Date Name Specimen Result Interpretation Description Value Range Status Address 06/12/2022 Cbc WB Normal Wbc 6.66 4.50-11.50 Final [facility] K/[facility](D O Not Use): [address] [place] [address] WB Normal Rbc 4.71 4.00-5.20 Final [facility] M/uL [facility](D O Not Use): [address] [place] [address] WB Normal Hgb 13.4 12.0-15.0 Final [facility] g/dL g/dL [facility](D O Not Use): [address] [place] [address] Normal Hct 41.5 % 36.0-48.0 % Final [facility](D O Not Use): [address] [place] [address] Normal Mcv 88.1 fL 80.0-99.9 fL Final [facility](D O Not Use): [address], [place] WB Normal Mch 28.5 pg 26.0-34.0 pg Final [facility](D O Not Use): [address] [facility] [place] WB Normal Mchc 32.3 31.0-36.0 Final [facility] g/dL g/dL [facility](D O Not Use): [address] [facility] [place] WB Normal Rdw 12.6 % 11.0-16.0 % Final [facility](D O Not Use): [address] [facility] [place] WB Normal Plt 247 140-440 K/uL Final [facility](D O Not Use): [address] [facility] [place] WB Normal Mpv 9.1 fL 7.4-10.4 fL Final [facility](D O Not Use): [address] [facility] [place] WB Normal Neut% 60.7 % 45.0-70.0 % Final [facility](D O Not Use): [address] [facility] [place] WB Normal Lymph% 25.5 % 15.5-49.0 % Final [facility](D O Not Use): [address] [facility] [place] WB High [place]% 10.7 % 1.7-9.2 % Final [facility](D O Not Use): [address] [facility] [place] WB Normal Eos% 2.0 % 1.0-5.0 % Final [facility](D O Not Use): [address] [facility] [place] WB High Baso% 0.9 % 0.0-0.5 % Final [facility](D O Not Use): [address] [facility] [place] WB Normal Ig% 0.2 % 0.0-72.0 % Final [facility](D O Not Use): [address] [facility] [place] WB Normal Neut# 4.05 2.00-7.50 Final [facility](D O Not Use): [address] [facility] [place] WB Normal Lymph# 1.70 1.00-3.40 Final [facility](D O Not Use): [address] [facility] [place] WB High [place]# 0.71 0.10-0.60 Final [facility] d K/uL K/[facility](D O Not Use): [address] [facility] Normal Eos# 0.13 0.00-0.40 Final [facility] d K/uL K/uL [facility](D O Not Use): [address] [facility] Normal Baso# 0.06 0.00-0.10 Final [facility] d K/uL K/[facility](D O Not Use): [address] [facility] Normal Ig# 0.01 0.00-7.00 Final [facility] d K/uL K/[facility](D O Not Use): [address] [place] [address] 06/12/2022 Lipase P Low Lip 59.58 73.00-393.00 Final [place] U/L U/L [facility](D O Not Use): [address] [place] [address] 06/12/2022 CMP, S Normal Glu 109 70-110 mg/dL Final [place] Serum or mg/dL [facility] Plasma [facility](D O Not Use): [address] [place] [address] [place] S Normal Bun 11.42 7.00-18.00 Final [facility] mg/dL [facility](D O Not Use): [address] [facility] Normal Crea 0.79 0.30-1.30 Final [facility] d mg/dL mg/dL [facility](D O Not Use): [address] [facility] Normal Na 138.69 136.00-145.00 Final [facility] field mmol/L mmol/L [facility](D O Not Use): [address] [facility] Normal K 4.04 3.50-5.10 [facility]/L mmol/L [facility](D O Not Use): [address] [facility] Normal Cl 102.40 98.00-107.00 [facility] mmol/L mmol/L [facility](D O Not Use): [address] [facility] Normal Ec02 29.78 21.00-32.00 [facility] mmol/L mmol/L [facility](D O Not Use): [address] [facility] Normal Angap 10.55 7.00-21.00 Final [place] [facility] mmol/L mmol/L [facility](D O Not Use): [address] [facility] Normal Ca 9.24 8.10-10.20 Final [place] [facility] mg/dL mg/dL [facility](D O Not Use): [address] [facility] Normal Tp 6.73 6.00-8.30 Final [place] [facility] g/dL g/dL [facility](D O Not Use): [address] [facility] Normal Alb 3.71 3.40-5.00 Final [place] [facility] g/dL g/dL [facility](D O Not Use): N [facility] Normal Glob 3.02 2.20-3.30 Final [place] [facility] g/dL g/dL [facility](D O Not Use): [address] [facility] Normal A/g 1.23 1.00-2.20 Final [place] [facility](D O Not Use): N [facility] Normal Tbili 0.47 0.00-1.20 Final [place] [facility] mg/dL mg/dL [facility](D O Not Use): [address] [facility] Normal Ast 22.54 13.00-39.00 Final [place] U/L U/L [facility](D O Not Use): [address] [facility] Normal Alt 23.14 14.00-59.00 Final [place] U/L U/L [facility](D O Not Use): [address] [facility] Normal Alp 103.81 46.00-136.00 Final [place] U/L U/L [facility](D O Not Use): [address] [facility] [place] Sanchez Normal Gfr 75.19 >60.00 Final [place] mL/min/ mL/min/bsa [facility] [address] [facility] Normal Gfraa 91.13 >60.00 Final [place] mL/min/ mL/min/bsa [facility] Use): [address], [place] Allergies Code Code System Name Reaction Severity [...] Arthroplasty Information not available Notes: Bilateral 2008, 200906/12/2022 CT, Abdomen + Pelvis, W/ [facility] [place], [place] [id number] (Work Place) Vaccine List Vaccine Type COVID-19, mRNA, LNP-S, PF, 100 mcg/0.5 m L dose (Moderna) 10.5 mL 12/14/2020 20.25 mL influenza, high dose seasonal 08/17/20180.5 mL 02/09/20190.5 mL 08/03/20190.5 mL influenza, high-dose, quadrivalent 08/22/20200.7 mL 10.7 mL influenza, injectable, quadrivalent 09/18/2012 pneumococcal conjugate PCV 13 05/13/2018 pneumococcal polysaccharide PPV23 07/30/20200.5 mL Td (adult) 10/19/1998 Td (adult) preservative free 10.5 mL zoster recombinant 0.5 mL Social History [...] ovarian Information) Functional Status Unknown. Past Encounters 06/12/2022 Constipation; Abdominal Pain Harvinder Partida MD: [address] [place] [phone], Ph. History of Present Illness Note: <p>Please see assessment and plan below, HPI will be included also under the A/P heading.
</p> Review of Systems [Global] Comprehensive ROS Reported By: Patient Constitutional: Constitutional: no fever, no night sweats, weight loss (4 lbs) Eyes: Eyes: no vision change, no [...] breath; Chronic and stable Gastrointestinal: Gastrointestinal: no nausea, no vomiting, normal appetite, no diarrhea, no dyspepsia, a bdominal pain, constipation Genitourinary: Genitourinary: no incontinen ce, no difficulty urinating, no hematuria, no increased freq uency Integumentary: Skin: no rashes Musculoskeletal: Musculoskeletal: no muscle a ches, no arthralgias/joint pain, no back pain, no swell ing in the extremities Psychiatric: Psychiatric: no sleep distur bances, feeling [...] masses, no costovertebral angle (CVA) tenderness: bilateral; Abdomen is soft and nondistended. She does have some tenderness to deep palpation left lower quadrant, no rebound or guarding. Bowel s ounds normal. No palpable masses organomegaly. Rectal examina tion normal with no stool in the rectal vault and she is guaiac nega tive. No evidence of perianal cellulitis or perirectal abs cess. Hernia: none palpable. Rectal Exam: nl patient exam. Anus, Perineum, Rectum: normal tone, no hemorrhoids, no fissures, no masses, stool heme negative Lymphatic: Palpation: no cervical lymph adenopathy on the left, no cervical lymphadenopathy on the right Musculoskeletal:: Gait and Station: normal gai t. Motor Strength and Tone: normal tone. Joints, Bones, and Mus cles: normal movement of all extremities, no tenderness. Extremities: no edema Skin: Inspection and palpation: no rash, normal turgor Neurologic: Orientation: oriented to per son, place, time and situation. Memory: recent memory normal, remote memory normal Psychiatric: Insight: good insight, good judgment. Mental Status: normal mood, normal affect
[2022-06-13] MEDS: CEFEPIME 2 GM VIAL IV SCH ×3 (05:51→22:00)
--- NOTE | 2022-06-13 08:03 | EKG ---
[facility] Test Date: 2022-06-12 Pat Name: Lita Pineda Department: ED Room: Gender: Female Workers[employer] Compensation Magistrate: : 1945 Requested By: Ray Neff Order Number: [id number] [place] MD: Krystian Spencer Measurements Intervals [place] Rate: 58 P: 193 AR: 84 QRS: 63 QRSD: 103 T: 89 QT: 445 QTc: 438 Interpretive Statements Sinus or ectopic atrial rhythm Short AR interval Nonspecific T abnormalities, lateral leads Electronically Signed On 06-13-2022 8:03:34 PDT by Krystian Spencer /store/M0/[id number]/[id number].pdf
[2022-06-13] MEDS ORDERED: fentaNYL 100 MCG/2 ML VIAL IV ONE (11:00)
[2022-06-13] MEDS ORDERED: DEXAMETHASONE 10 MG/ML VIAL ONE (11:00)
[2022-06-13] MEDS ORDERED: PROPOFOL 200 MG/20 ML VIAL IV ONE (11:00)
[2022-06-13] MEDS ORDERED: PHENYLephrine 1 MG/10 ML SYRINGE (ANEST) ONE (11:00)
[2022-06-13] MEDS ORDERED: MAGNESIUM SULFATE 2 GM/50 ML BAG IV ONE (11:00)
[2022-06-13] MEDS ORDERED: LIDOCAINE HCL/PF 100 MG/5 ML SYRINGE IV ONE (11:00)
[2022-06-13] MEDS ORDERED: ROPIVACAINE HCL/PF 20 ML VIAL IJ ONE (11:00)
[2022-06-13] MEDS ORDERED: GLYCOPYRROLATE 0.2 MG/ML VIAL IV ONE (11:00)
[2022-06-13] MEDS ORDERED: KETAMINE 50 MG/ML Syringe (ANEST) IV ONE (11:00)
[2022-06-13] MEDS ORDERED: SUGAMMADEX SODIUM 200 MG/2 ML VIAL IV ONE (11:00)
[2022-06-13] MEDS ORDERED: ONDANSETRON 4 MG/2 ML VIAL ONE (11:00)
--- NOTE | 2022-06-13 13:07 | Brief Operative Note ---
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
[2022-06-13] MEDS ORDERED: HYDROmorphone 0.5 MG/0.5 ML SYRINGE IV PRN (13:43)
[2022-06-13] MEDS ORDERED: IPRATROPIUM/ALBUTEROL 3 ML AMPUL.NEB NEB PRN (13:43)
[2022-06-13] MEDS ORDERED: NALOXONE HCL 0.4 MG/ML VIAL IV PRN (13:43)
[2022-06-13] MEDS ORDERED: ACETAMINOPHEN 1,000 MG/100 ML BAG IV ONE (13:43)
[2022-06-13] MEDS ORDERED: METHOCARBAMOL 1,000 MG/10 ML VIAL IV PRN (13:43)
[2022-06-13] MEDS ORDERED: MEPERIDINE 25 MG/ML VIAL IV PRN (13:43)
[2022-06-13] MEDS ORDERED: PROMETHAZINE 25 MG/ML VIAL IM PRN (13:43)
[2022-06-13] MEDS ORDERED: PROMETHAZINE 25 MG/ML VIAL IV PRN (13:43)
[2022-06-13] MEDS ORDERED: ONDANSETRON 4 MG/2 ML VIAL IV PRN (13:43)
[2022-06-13] MEDS ORDERED: LACTATED RINGERS 250 ML IV PRN (13:43)
[2022-06-13] MEDS ORDERED: fentaNYL 100 MCG/2 ML VIAL IV PRN (13:43)
[2022-06-13] MEDS ORDERED: morphine 2 MG/ML VIAL IV PRN (13:43)
[2022-06-13] MEDS ORDERED: MEPERIDINE 50 MG/ML VIAL IM PRN (13:43)
[2022-06-13] MEDS ORDERED: LACTATED RINGERS 1,000 ML IV SCH (13:45)
[2022-06-13] MEDS: ACETAMINOPHEN 1,000 MG/100 ML BAG IV SCH ×2 (13:59→19:13)
[2022-06-13] MEDS: HYDROmorphone 1 MG/ML SYRINGE IV PRN ×2 (15:58→19:38)
[2022-06-13] MEDS ORDERED: BENZOCAINE 1 SPRAY BOTTLE TOPICAL ONE (16:13)
[2022-06-13] MEDS: BENZOCAINE 1 SPRAY BOTTLE TOPICAL PRN ×2 (16:45→19:25)
[2022-06-13] MEDS: METOCLOPRAMIDE 10 MG/2 ML VIAL IV SCH (17:16)
[2022-06-14] MEDS: metroNIDAZOLE 500 MG/100 ML BAG IV SCH ×4 (00:03→17:29)
[2022-06-14] MEDS: METOCLOPRAMIDE 10 MG/2 ML VIAL IV SCH ×4 (00:03→17:29)
[2022-06-14] MEDS: ACETAMINOPHEN 1,000 MG/100 ML BAG IV SCH ×3 (01:18→14:38)
[2022-06-14] MEDS: HYDROmorphone 1 MG/ML SYRINGE IV PRN ×3 (02:34→21:37)
[2022-06-14] MEDS: 0.9 % SODIUM CHLORIDE 1,000 ML IV SCH ×4 (02:34→19:03)
--- NOTE | 2022-06-14 05:36 | XRay Report ---
CLINICAL INFORMATION: NG tube placement COMPARISON: None. 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 The NG tip overlies the known location of the gastric body. Stool gas pattern is unremarkable. No gross free air. IMPRESSION: NG tip overlying the gastric body. No acute disease Interpreted and Authenticated by: Tashi Saini 06/14/22
[2022-06-14] MEDS: CEFEPIME 2 GM VIAL IV SCH ×3 (05:43→21:35)
[2022-06-14 06:37] LABS: Basophils # (Auto) 0.02 K/mcL (0.00-0.30); Basophils % (Auto) 0.1 % (0.0-2.0); Eosinophils # (Auto) 0 K/mcL (0.00-0.70); Eosinophils % (Auto) 0 % (0.0-7.0); Hematocrit 39.1 % (34.1-44.9); Hemoglobin 12.2 g/dL (11.2-15.7); Lymphocytes # (Auto) 0.81 K/mcL (1.50-4.80); Lymphocytes % (Auto) 4.8 % (15.5-49.0); Mean Cell Volume 89.1 fL (80.0-100.0); Mean Corpuscular HGB Conc 31.2 g/dL (31.0-36.0); Mean Platelet Volume 9.5 fL (7.4-10.4); Monocytes # (Auto) 0.89 K/mcL (0.10-0.90); Monocytes % (Auto) 5.3 % (1.0-12.0); Neutrophils % (Auto) 89.4 % (38.0-78.0); Platelet Count 238 K/mcL (140-440); RBC 4.39 M/mcL (3.59-5.38); Red Cell Distribution Width 12.4 % (11.5-14.5); WBC 16.9 K/mcL (4.5-11.0)
[2022-06-14 07:19] LABS: ALT/SGPT 14 U/L (<40); AST/SGOT 22 U/L (<32); Albumin 3.4 gm/dL (3.2-5.2); Albumin/Globulin Ratio 1.2 (1.0-2.3); Alkaline Phosphatase 96 U/L (39-117); Bilirubin,Direct < 0.2 mg/dL (0-0.3); Bilirubin,Total 0.3 mg/dL (0.1-1.0); Blood Urea Nitrogen 9 mg/dL (8-23); Calcium 7.8 mg/dL (8.6-10.4); Carbon Dioxide 24 mmol/L (22-30); Chloride 102 mmol/L (96-108); Globulin 2.8 gm/dL (2.2-3.7); Glomerular Filtration Rate 94; Glucose 131 mg/dL (70-105); Lactate Dehydrogenase 246 U/L (135-225); Phosphorous 3.2 mg/dL (2.5-4.5); Triglycerides 47 mg/dL (<150); Uric Acid 4.2 mg/dL (2.5-8.0)
[2022-06-14] MEDS: BENZOCAINE 1 SPRAY BOTTLE TOPICAL PRN ×3 (13:18→23:50)
--- NOTE | 2022-06-14 13:50 | General Surgery Progress Note ---
SUBJECTIVE Subjective Patient information: Note initiated : 06/14/22 at 1:44 pm Service Date, if different from initiated Date: [] Patient: Lita Pineda 77 y/o F admitted on 06/12/22 for Constipation. 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 She is doing well and has had some output through her stoma. She does not complain of any crampy pain. She has been afebrile. White blood count 16.9, hemoglobin 12.2, hematocrit 39.1, potassium 4.6, BUN 9 creatinine 0.5. Constitutional Vitals: Vital Signs Temp Pulse Resp BP Pulse Ox O2 Del Method O2 Flow Rate 97.2 F 72 16 141/65 93 3 06/14/22 08:18 06/14/22 04:00 06/14/22 08:00 06/14/22 08:00 06/14/22 08:00 06/14/22 08:00 06/14/22 08:00 Period Temp Pulse Resp BP Sys/Bob Pulse Ox O2 Del Method O2 Flow Rate Last 24 Hr 97 F-97.8 F 64-80 14-24 126-151/53-81 91-99 Nasal Cannula-Room Air 3-10 Intake and Output 06/13/22 06/14/22 06/14/22 21:59 05:59 13:59 Intake Total 1300 1200 200 Output Total 1275 775 Balance 25 425 200 Weight 224 lb 8 oz Intake & Output: Intake & Output 06/13/22 06/14/22 06/14/22 21:59 05:59 13:59 Intake Total 1300 1200 200 Output Total 1275 775 Balance 25 425 200 Weight 224 lb 8 oz Intake: IV 1300 1200 200 Sodium Chloride 0.9% 1,000 ml @ 1000 1000 100 mls/hr IV .Q10H [facility] Rx#: [id number] Tube Feeding 0 Output: Gastric Drainage 0 Left Nare NG/OG 0 Urine Catheter Amount 1075 Void Amount 450 Stool 200 325 Other: Urine Appearance Cloudy Cloudy Cloudy Uretheral ([place]) Cloudy Cloudy Cloudy Urine Color Light Allison Dark Allison Tea Colored Uretheral ([place]) Light Allison Light Allison Tea Colored Urine Odor Normal Stool Size Small Stool Color Brown Brown Stool Consistency Soft Soft # Bowel Movements 1 ENT ENT exam: Present normal oropharynx Neck Neck exam: Present normal inspection Respiratory Respiratory exam: Present normal respiratory exam and CTAB; Absent wheezes Cardiovascular Cardiovascular exam: Present normal rate and rhythm, RRR, +S1 and +S2; Absent gallop or JVD GI/Abdominal GI/Abdominal exam: Present normal bowel sounds, diminished bowel sounds and distended; Absent soft Additional comments: Incision looks good and stoma is healthy with some early output of stool in Extremities Exam Extremities exam: Present full ROM and neurovascular intact Neurological Exam Neurological exam: Present alert and oriented X3; Absent motor sensory deficit Psychiatric Psychiatric exam: Present normal affect and normal mood A/P Assessment and plan (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
[2022-06-14] MEDS: MAGNESIUM HYDROXIDE 30 ML ORAL.SUSP PO SCH ×3 (14:35→22:13)
[2022-06-14] MEDS ORDERED: hydrALAZINE 20 MG/ML VIAL IV PRN (17:07)
[2022-06-14] MEDS: LATANOPROST OPHTH DROPS 2.5ML BOTTLE OU SCH (22:27)
[2022-06-15] MEDS: METOCLOPRAMIDE 10 MG/2 ML VIAL IV SCH ×4 (00:03→17:46)
[2022-06-15] MEDS: HYDROmorphone 1 MG/ML SYRINGE IV PRN (00:03)
[2022-06-15] MEDS: metroNIDAZOLE 500 MG/100 ML BAG IV SCH ×4 (00:03→17:46)
[2022-06-15] MEDS: MAGNESIUM HYDROXIDE 30 ML ORAL.SUSP PO SCH ×2 (02:44→07:40)
[2022-06-15] MEDS: 0.9 % SODIUM CHLORIDE 1,000 ML IV SCH ×2 (05:39→17:46)
[2022-06-15] MEDS: CEFEPIME 2 GM VIAL IV SCH ×3 (05:39→21:57)
[2022-06-15 06:26] LABS: Basophils # (Auto) 0.04 K/mcL (0.00-0.30); Basophils % (Auto) 0.2 % (0.0-2.0); Eosinophils # (Auto) 0 K/mcL (0.00-0.70); Eosinophils % (Auto) 0 % (0.0-7.0); Hematocrit 38.9 % (34.1-44.9); Hemoglobin 12.3 g/dL (11.2-15.7); Mean Cell Volume 89.8 fL (80.0-100.0); Mean Corpuscular HGB Conc 31.6 g/dL (31.0-36.0); Mean Platelet Volume 9.7 fL (7.4-10.4); Monocytes # (Auto) 1.15 K/mcL (0.10-0.90); Monocytes % (Auto) 6.9 % (1.0-12.0); Neutrophils % (Auto) 86.4 % (38.0-78.0); Platelet Count 244 K/mcL (140-440); RBC 4.33 M/mcL (3.59-5.38); Red Cell Distribution Width 12.7 % (11.5-14.5); WBC 16.7 K/mcL (4.5-11.0)
[2022-06-15 06:49] LABS: ALT/SGPT 14 U/L (<40); AST/SGOT 22 U/L (<32); Albumin 3.4 gm/dL (3.2-5.2); Albumin/Globulin Ratio 1.2 (1.0-2.3); Alkaline Phosphatase 93 U/L (39-117); Bilirubin,Direct < 0.2 mg/dL (0-0.3); Bilirubin,Total 0.3 mg/dL (0.1-1.0); Blood Urea Nitrogen 7 mg/dL (8-23); Carbon Dioxide 28 mmol/L (22-30); Chloride 103 mmol/L (96-108); Globulin 2.9 gm/dL (2.2-3.7); Glomerular Filtration Rate 101; Glucose 107 mg/dL (70-105); Lactate Dehydrogenase 264 U/L (135-225); Phosphorous 1.4 mg/dL (2.5-4.5); Triglycerides 53 mg/dL (<150); Uric Acid 3.6 mg/dL (2.5-8.0)
[2022-06-15] MEDS: LATANOPROST OPHTH DROPS 2.5ML BOTTLE OU SCH ×2 (09:34→21:56)
[2022-06-15] MEDS: BRIMONIDINE OPHTH DROPS 1 GTT BOTTLE 5ML OU SCH (09:54)
--- NOTE | 2022-06-15 17:48 | General Surgery Progress Note ---
SUBJECTIVE Subjective Patient information: Note initiated : 06/15/22 at 5:44 pm Service Date, if different from initiated Date: [] Patient: Lita Pineda 77 y/o F admitted on 06/12/22 for Constipation. Chief Complaint: [] Principal diagnosis: Colonic obstruction Interval history: Patient is doing well. Her stoma appliance was emptied 4 times last evening and twice today. Abdomen is less distended. White blood count 16.7, hemoglobin 12.3, hematocrit 38.9. Potassium, BUN, creatinine are normal. Her urine is bloody sediment so a UA will be obtained. Constitutional Vitals: Vital Signs Temp Pulse Resp BP Pulse Ox O2 Del Method O2 Flow Rate 97.9 F 84 18 149/71 97 2 06/15/22 16:00 06/15/22 16:00 06/15/22 16:00 06/15/22 16:00 06/15/22 16:00 06/15/22 16:00 06/15/22 16:00 Period Temp Pulse Resp BP Sys/Bob Pulse Ox O2 Del Method O2 Flow Rate Last 24 Hr 97.0 F-98.6 F 75-91 - 125-164/61-85 91-97 Nasal Cannula- Nasal Cannula 2-3 Intake and Output 06/15/22 06/15/22 06/15/22 05:59 13:59 21:59 Intake Total 1300 200 200 Output Total 700 350 500 Balance 600 -150 -300 Intake & Output: Intake & Output 06/15/22 06/15/22 06/15/22 05:59 13:59 21:59 Intake Total 1300 200 200 Output Total 700 350 500 Balance 600 -150 -300 Intake: IV 1100 200 Sodium Chloride 0.9% 1,000 ml @ 1000 100 mls/hr IV .Q10H [facility] Rx#: [id number] Oral 200 200 Tube Feeding 0 Output: Gastric Drainage 0 Left Nare NG/OG 0 Urine Catheter Amount 425 Stool 275 350 500 Other: Urine Appearance Cloudy Cloudy Sediment Uretheral ([place]) Cloudy Cloudy Sediment Urine Color Tea Colored Tea Colored Uretheral ([place]) Tea Colored Brown Stool Size Large Stool Color Brown Stool Consistency Liquid Liquid Loose A/P Assessment and plan (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
[2022-06-15 21:17] LABS: Appearance,Urine Cloudy (Clear); Bilirubin,Urine Negative (Negative); Color,Urine Dark yellow; Culture Indicated,Urine yes; Ketones,Urine >=160 mg/dL mg/dL (Negative); Leukocyte Esterase,Urine Negative /uL (Negative); Mucus,Urine FEW /hpf; Nitrate,Urine Negative (Negative); Protein,Urine >=300 mg/dL mg/dL (Negative); Specific Gravity,Urine >= 1.030 (1.000-1.035); Urine Blood Large ery/mcL (Negative); Urine RBC > 182 /hpf (0-1); Urine Squamous Epithelial Cell 0 /hpf (0-4); Urine WBC 110 /hpf (0-4); Urobilinogen,Urine Normal
[2022-06-16] MEDS: metroNIDAZOLE 500 MG/100 ML BAG IV SCH ×4 (00:14→17:56)
[2022-06-16] MEDS: METOCLOPRAMIDE 10 MG/2 ML VIAL IV SCH ×4 (00:14→17:52)
[2022-06-16] MEDS: LORazepam 2 MG/ML VIAL IV PRN (00:36)
[2022-06-16] MEDS: HYDROmorphone 1 MG/ML SYRINGE IV PRN (02:08)
[2022-06-16] MEDS: 0.9 % SODIUM CHLORIDE 1,000 ML IV SCH (05:52)
[2022-06-16] MEDS: CEFEPIME 2 GM VIAL IV SCH ×3 (05:53→20:59)
[2022-06-16] MEDS: BRIMONIDINE OPHTH DROPS 1 GTT BOTTLE 5ML OU SCH ×2 (11:23→11:51)
--- NOTE | 2022-06-16 13:07 | General Surgery Progress Note ---
SUBJECTIVE Subjective Patient information: Note initiated : 06/16/22 at 1:01 pm Service Date, if different from initiated Date: [] Patient: Lita Pineda 77 y/o F admitted on 06/12/22 for Constipation. Chief Complaint: [] Principal diagnosis: Colonic obstruction Interval history: Patient continues to improve. She has had multiple liquid bowel movements through her stoma. Her blood pressure has been mildly elevated. Her pain is controlled. She denies nausea. She has tolerated diet without difficulty. Constitutional Vitals: Vital Signs Temp Pulse Resp BP Pulse Ox O2 Del Method O2 Flow Rate 97.6 F 81 19 153/82 95 3 06/16/22 12:00 06/16/22 12:00 06/16/22 12:00 06/16/22 12:00 06/16/22 12:00 06/16/22 12:00 06/16/22 07:38 Period Temp Pulse Resp BP Sys/Bob Pulse Ox O2 Del Method O2 Flow Rate Last 24 Hr 97.1 F-98.6 F 81-116 18-24 111-153/64-82 95-98 Nasal Cannula- Room Air 2-3 Intake and Output 06/15/22 06/16/22 06/16/22 21:59 05:59 13:59 Intake Total 1300 1500 200 Output Total 1200 825 Balance 100 675 200 Weight 234 lb Intake & Output: Intake & Output 06/15/22 06/16/22 06/16/22 21:59 05:59 13:59 Intake Total 1300 1500 200 Output Total 1200 825 Balance 100 675 200 Weight 234 lb Intake: IV 1100 1100 100 Sodium Chloride 0.9% 1,000 ml @ 1000 1000 100 mls/hr IV .Q10H [facility] Rx#: [id number] Oral 200 400 100 Tube Feeding 0 Output: Urine Catheter Amount 700 650 Stool 500 175 Other: Meal snack Breakfast Percent of Meal Consumed 50% 25% Feeding Ability Assist with Tray Set Up Urine Appearance Cloudy Sediment Sediment Sediment Uretheral (Harrington) Cloudy Sediment Urine Color Tea Colored Tea Colored Tea Colored Uretheral (Harrington) Tea Colored Tea Colored Urine Odor Strong Normal Head Head exam: Present atraumatic, normal inspection and normocephalic Eye Eye exam: Present EOMI and PERRL Pupils: Present normal accommodation ENT ENT exam: Present normal exam and normal oropharynx Neck Neck exam: Present full ROM and normal inspection; Absent tenderness Respiratory Respiratory exam: Present normal respiratory exam and CTAB Cardiovascular Cardiovascular exam: Present normal rate and rhythm, RRR, +S1 and +S2 GI/Abdominal GI/Abdominal exam: Present normal bowel sounds, soft, distended (Mild distention) and tenderness (Mild incisional tenderness) Additional comments: Stoma is viable;s he has good output Extremities Exam Extremities exam: Present normal inspection and neurovascular intact Neurological Exam Neurological exam: Present oriented X3; Absent motor sensory deficit Psychiatric Psychiatric exam: Present normal affect and normal mood A/P Assessment and plan (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
[2022-06-16] MEDS: 0.9 % SODIUM CHLORIDE 10 ML SYRINGE IV SCH ×2 (14:53→21:00)
--- NOTE | 2022-06-16 15:36 | Operative Note ---
DATE OF OPERATION: 06/13/2022 PREOPERATIVE DIAGNOSIS: Sigmoid colon mass with total colonic obstruction. POSTOPERATIVE DIAGNOSIS: Sigmoid mass with total colonic obstruction. PROCEDURE: Segmental sigmoid resection with end colostomy. SURGEON: Servando Proctor M.D. FINDINGS: A total compaction of the entire colon with stool with a solid, hard neoplastic mass of the sigmoid colon with total obstruction. DESCRIPTION OF PROCEDURE: Under general anesthesia, the patient's abdomen was prepped and draped in a sterile field. Lower midline incision was made. Upon entering the peritoneal cavity, there was a small amount of free peritoneal fluid, but it was not of great volume. The incision was extended above the umbilicus and the abdomen was packed off using the Bookwalter retractor. After the small bowel and the omentum were packed off, there was adequate isolation of the sigmoid and descending colon. There was a hard mass in the mid portion of the sigmoid colon. Her pelvic organs did not appear to be involved. Tissue distal to the mass was soft and not involved. The colon was divided about 10 cm proximal and about 7 cm distal to the mass. This was done using a Contour stapler. The mesocolon was divided using a Voyant cautery device. The specimen was passed off. Once this was done, the rectal stump was inspected, and it appeared that except for stool, it would be adequate for reanastomosis. The descending colon was mobilized up to the splenic flexure. This allowed adequate length of the distal sigmoid to form a colostomy. The position for the colostomy in the left lower quadrant was chosen. The skin was divided and then the muscles were divided longitudinally and then stretched. The colon was grasped and pulled through the opening in the abdominal wall in the left lower quadrant. The colon and mesocolon was sutured circumferentially to the peritoneum using interrupted 2-0 silk. Irrigation was carried out and we then changed our final closure instruments. Sponge, needle, instrument, and blade counts were verified as correct. The nasogastric tube was positioned in the stomach. The fascia and peritoneum were closed with running #1 Prolene. The wall of the stoma was sutured to the anterior rectus fascia using interrupted 3-0 silk. The end of the colon was opened and the end of the colon was sutured to the dermis circumferentially using running locking 3-0 Vicryl. Tegaderm dressing was placed and a stoma appliance was placed. The patient tolerated the procedure well. She was awakened and transferred to the postanesthetic care unit in satisfactory condition. LCS:quynh Job ID: [id number] Doc ID: [id number] Servando Proctor M.D.
[2022-06-16] MEDS: ACETAMINOPHEN 500 MG TABLET PO PRN (17:56)
[2022-06-16] MEDS: LATANOPROST OPHTH DROPS 2.5ML BOTTLE OU SCH (21:00)
[2022-06-17] MEDS: METOCLOPRAMIDE 10 MG/2 ML VIAL IV SCH ×3 (00:09→12:54)
[2022-06-17] MEDS: metroNIDAZOLE 500 MG/100 ML BAG IV SCH ×4 (00:52→14:07)
[2022-06-17] MEDS: ACETAMINOPHEN 500 MG TABLET PO PRN ×3 (02:43→22:06)
[2022-06-17] MEDS: CEFEPIME 2 GM VIAL IV SCH (05:12)
[2022-06-17] MEDS: 0.9 % SODIUM CHLORIDE 10 ML SYRINGE IV SCH (05:13)
[2022-06-17 06:31] LABS: Basophils # (Auto) 0.07 K/mcL (0.00-0.30); Basophils % (Auto) 0.7 % (0.0-2.0); Eosinophils # (Auto) 0.08 K/mcL (0.00-0.70); Eosinophils % (Auto) 0.8 % (0.0-7.0); Hematocrit 41.4 % (34.1-44.9); Hemoglobin 13.2 g/dL (11.2-15.7); Lymphocytes # (Auto) 1.61 K/mcL (1.50-4.80); Lymphocytes % (Auto) 17.1 % (15.5-49.0); Mean Cell Volume 88.8 fL (80.0-100.0); Mean Corpuscular HGB Conc 31.9 g/dL (31.0-36.0); Mean Platelet Volume 9.5 fL (7.4-10.4); Monocytes # (Auto) 0.91 K/mcL (0.10-0.90); Monocytes % (Auto) 9.7 % (1.0-12.0); Neutrophils % (Auto) 71.2 % (38.0-78.0); Platelet Count 285 K/mcL (140-440); RBC 4.66 M/mcL (3.59-5.38); WBC 9.4 K/mcL (4.5-11.0)
[2022-06-17] MEDS: DILTIAZEM 180 MG CAP.XL.24H PO SCH (08:54)
[2022-06-17] MEDS: BRIMONIDINE OPHTH DROPS 1 GTT BOTTLE 5ML OU SCH (08:54)
[2022-06-17] MEDS: LOSARTAN 50 MG TABLET PO SCH (08:54)
[2022-06-17] MEDS: ESCITALOPRAM 20 MG TABLET PO SCH (12:00)
[2022-06-17] MEDS ORDERED: ONDANSETRON 4 MG ODT TABLET SL PRN (13:30)
[2022-06-17] MEDS: METOCLOPRAMIDE 10 MG TABLET PO SCH ×2 (14:07→18:09)
--- NOTE | 2022-06-17 14:32 | General Surgery Progress Note ---
SUBJECTIVE Subjective Patient information: Note initiated : 06/17/22 at 2:29 pm Service Date, if different from initiated Date: [] Patient: Lita Pineda 77 y/o F admitted on 06/12/22 for Constipation. Chief Complaint: [] Principal diagnosis: Colonic obstruction Interval history: Patient has gradually improved. She is having good output through her stoma. She is significantly weakened and would benefit from rehab services after the hospitalization. White blood count 9.4, hemoglobin 13.2, hematocrit 41.4. Stoma is healthy Constitutional Vitals: Vital Signs Temp Pulse Resp BP Pulse Ox O2 Del Method O2 Flow Rate 97.8 F 94 H 20 108/53 98 1.5 06/17/22 12:00 06/17/22 12:00 06/17/22 12:00 06/17/22 12:00 06/17/22 12:00 06/17/22 12:00 06/17/22 08:00 Period Temp Pulse Resp BP Sys/Bob Pulse Ox O2 Del Method O2 Flow Rate Last 24 Hr 96.9 F-97.8 F 82-111 20-24 108-171/53-92 91-98 Nasal Cannula- Room Air 1.5-2 Intake and Output 06/17/22 06/17/22 06/17/22 05:59 13:59 21:59 Intake Total 440 350 240 Output Total 400 550 Balance 40 -200 240 Intake & Output: Intake & Output 06/17/22 06/17/22 06/17/22 05:59 13:59 21:59 Intake Total 440 350 240 Output Total 400 550 Balance 40 -200 240 Intake: IV 100 100 Oral 340 250 240 Output: Void Amount 400 250 Stool 300 Other: Meal Snack Breakfast Lunch Percent of Meal Consumed 100% 50% 25% Feeding Ability Independent Assist with Tray Set Up Assist with Tray Set Up Urine Appearance Clear Sediment Urine Color Tea Colored Dark Allison Urine Odor Normal Strong ENT ENT exam: Present normal exam and normal oropharynx Neck Neck exam: Present normal inspection; Absent tenderness Respiratory Respiratory exam: Present CTAB Cardiovascular Cardiovascular exam: Present JVD, RRR, +S1 and +S2 GI/Abdominal GI/Abdominal exam: Present guarding; Absent distended Additional comments: Stoma is healthy Extremities Exam Extremities exam: Present normal inspection and neurovascular intact Neurological Exam Neurological exam: Present normal gait, oriented X3 and reflexes normal; Absent motor sensory deficit Psychiatric Psychiatric exam: Present normal affect and normal mood A/P Assessment and plan (1) Neoplasm of rectosigmoid junction: Status: Acute (2) Colonic obstruction: Status: Acute (3) Chronic obstructive pulmonary disease: Status: Chronic Qualifiers: COPD type: unspecified COPD Qualified Code(s): J44.9 - Chronic obstructive pulmonary disease, unspecified Plan Physical therapy evaluation Occupational Therapy evaluation Consideration for swing bed status at [facility] Time Spent With Patient Time: Total time spent is greater than 50% in coordination of care (as documented) at patient's floor/unit and/or counseling patient:
[2022-06-17] MEDS: LATANOPROST OPHTH DROPS 2.5ML BOTTLE OU SCH (22:06)
[2022-06-18] MEDS: METOCLOPRAMIDE 10 MG TABLET PO SCH ×3 (00:08→11:59)
[2022-06-18] MEDS: ESCITALOPRAM 20 MG TABLET PO SCH (09:09)
[2022-06-18] MEDS: LOSARTAN 50 MG TABLET PO SCH (09:09)
[2022-06-18] MEDS: BRIMONIDINE OPHTH DROPS 1 GTT BOTTLE 5ML OU SCH (09:09)
[2022-06-18] MEDS: DILTIAZEM 180 MG CAP.XL.24H PO SCH (09:10)
--- NOTE | 2022-06-18 11:24 | Discharge Summary ---
Discharge Provider Provider IMPORTANT FOLLOW-UP INFORMATION FOR PCP: Patient information: Note initiated : 06/18/22 at 11:15 am Service Date, if different from initiated Date: [] Patient: Lita Pineda 77 y/o F admitted on 06/12/22 for Constipation. Chief Complaint: [] Date of admission: 06/12/22 20:28 Discharge date: 06/18/22 Primary care physician: Harvinder Partida Admitting clinician: Servando Proctor Attending physician on admission: Servando Proctor Consults: 06/12/22 Consult to Physician [CONS] Stat Comment: Consulting Provider: Servando Proctor Reason For Exam: Physician to Consult Attending physician on discharge: Servando Proctor Discharging clinician: Servando Proctor COURSE Hospital Course Hospital course: 77-year-old female who was admitted on 12 June with history suggestive of sigmoid colon obstruction. A bowel prep could not be done because of total obstruction. She underwent laparotomy with segmental sigmoid colon resection on 13 June 2022. She has an end colostomy which is functioning nicely.She is tolerating diet without difficulty and is becoming adjusted to her stoma. She is too weak for transfer home so she will have short stay in swing bed status at [facility]. 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 Restrictive lung disease Chronic obstructive lung disease Anxiety with depression Hypertension Reason for admission: Total colonic obstruction Procedures: Sigmoid colectomy with end colostomy Pertinent studies/significant findings: None Complications: None Time Spent with Patient Time attestation: Total time spent providing and/or coordinating discharge services: Time spent: Less than 30 minutes Physical Examination Vital Signs Vital signs: Temp Pulse Resp BP Pulse Ox O2 Del Method O2 Flow Rate 97.0 F 68 16 135/96 99 3 06/18/22 08:00 06/18/22 08:27 06/18/22 08:27 06/18/22 08:00 06/18/22 08:27 06/18/22 08:27 06/18/22 08:27 General physical appearance General physical exam: no distress, moderate pain and chronically ill Eyes Eye exam: PERRL and normal ocular movement ENT ENT exam: normal pinna and normal mucosa; negative no hearing loss Head Head exam IM: Present atraumatic, normal inspection and normocephalic Neck Neck exam: no masses, no bruits, trachea midline, no lymphadenopathy and no venous distension Cardiovascular Cardiovascular exam IM: Present normal rate and rhythm, RRR, +S1 and +S2; Absent JVD Respiratory Respiratory exam: normal expansion, normal respiratory effort and clear to auscultation Abdomen Abdomen: Present soft, tender (Mild incisional tenderness), bowel sounds (Regular bowel sounds) and surgical scars Integumentary Integumentary: Present no rash, no growths and no abnormal pigmentation Neurologic Neurologic: Present normal coordination and normal sensation Musculoskeletal Musculoskeletal: Present normal gait and normal posture Psychiatric Psychiatric: Present oriented to time, oriented to person, oriented to place, speech is normal and memory intact Discharge Plan Patient/Caregiver Discharge Instructions Activity: increase activity as tolerated Diet: Regular Diet Prescriptions: New oxycodone-acetaminophen [Endocet] 10-325 mg tablet 1 tab PO Q4H PRN (Reason: Pain) Qty: 30 0RF Continued brimonidine 0.2 % drops 1 drp ophthalmic (eye) QDAY Rx Instructions: ophthalmic (eye); 1 drop both eyes escitalopram oxalate 20 mg tablet 20 mg PO QDAY Rx Instructions: 20 mg PO ; losartan 100 mg tablet 100 mg PO QDAY Rx Instructions: PO daily; spironolactone 25 mg tablet See Rx Instructions PO BID Rx Instructions: PO twice a day; rosuvastatin 20 mg tablet 20 mg PO QDAY diltiazem HCl 180 mg capsule,extended release 24hr 180 mg PO QAM loratadine 10 mg capsule 10 mg PO QDAY aspirin 81 mg tablet,delayed release (DR/EC) 81 mg PO QDAY latanoprost 0.005 % drops 1 drp ophthalmic (eye) QHS Rx Instructions: 1 drop both eyes multivitamin Tablet 1 tab PO QAM vitamin E mixed 400 unit capsule 400 unit PO QDAY cholecalciferol (vitamin D3) 25 mcg (1,000 unit) capsule 50 mcg PO QDAY coenzyme Q10 100 mg capsule 100 mg PO QDAY omega-3 fatty acids [Fish Oil Concentrate] 1,000 mg capsule 1,000 mg PO QDAY Saccharomyces boulardii [Daily Probiotic (S. boulardii)] 250 mg capsule 275 mg PO QDAY alendronate [Fosamax] 70 mg tablet 70 mg PO QWEEK Rx Instructions: takes on wednesdays albuterol sulfate 90 mcg/actuation HFA aerosol inhaler 2 puff inhalation Q4-6HP PRN (Reason: shortness of breath or wheezing) Rx Instructions: 2 puffs inhalation ; PRN; Other Ambulatory Orders: OT Discharge Order (Routine) Location: None Selected Ordered By: Servando Proctor Physical Therapy at Discharge - General (Routine) Location: None Selected Ordered By: Servando Proctor Prescription drug monitoring program results: PDMP not reviewed Follow Up Plan Follow up with: Ru Partida MD [Primary Care Provider] - Patient Disposition: [facility] Swing Bed Prognosis: Fair Rehab Potential: Good I certify that the patient requires SNF services: Yes Overall status at discharge: patient is progressing back to baseline Discharge Orders: Discharge Order (Routine); Ordered 06/18/22 Ordered By: Servando Proctor Pending Pending Pending: Resuscitation Status Resuscitate (Full Code) Diet GI Soft/Transitional Start ThuJun 16 131 Acetaminophen (Acetaminophen 500 Mg Tablet) 500 - 1,000 mg PO Q6HP PRN; Protocol PRN Reason: Per Pain Protocol Last Admin: 06/17/22 22:06 Dose: 1,000 mg Documented By: Admin: 06/17/22 12:02 Dose: 500 mg Documented By: [email or web address] Admin: 06/17/22 02:43 Dose: 500 mg Documented By: Admin: 06/16/22 17:56 Dose: 500 mg Documented By: CAPO Benzocaine (Benzocaine 1 Crete Bottle) 2 spray TOPICAL Q2HP PRN PRN Reason: Pain Last Admin: 06/14/22 23:50 Dose: 2 spray Documented By: Admin: 06/14/22 17:30 Dose: 2 spray Documented By: Admin: 06/14/22 13:18 Dose: 2 spray Documented By: Admin: 06/13/22 19:25 Dose: 2 spray Documented By: Admin: 06/13/22 16:45 Dose: 2 spray Documented By: CARTER Brimonidine Tartrate (Brimonidine Ophth Drops 1 Gtt Bottle 5ml) 1 gtt OU DAILY [facility] Last Admin: 06/18/22 09:09 Dose: 1 drop Documented By: Admin: 06/17/22 08:54 Dose: 1 drop Documented By: Admin: 06/16/22 11:51 Dose: 1 drop Documented By: Admin: 06/15/22 09:54 Dose: 1 drop Documented By: DEVIN Diltiazem HCl (Diltiazem 180 Mg Cap.Xl.24h) 180 mg PO QAM [facility] Last Admin: 06/18/22 09:10 Dose: 180 mg Documented By: Admin: 06/17/22 08:54 Dose: 180 mg Documented By: CAPO Escitalopram Oxalate (Escitalopram 20 Mg Tablet) 20 mg PO DAILY [facility] Last Admin: 06/18/22 09:09 Dose: 20 mg Documented By: Admin: 06/17/22 12:00 Dose: 20 mg Documented By: [email or web address] Hydralazine HCl (Hydralazine 20 Mg/Ml Vial) 10 mg IV Q4-6HP PRN PRN Reason: Hypertension Last Admin: 06/17/22 03:40 Dose: 10 mg Documented By: RADHA Hydromorphone HCl (Hydromorphone 1 Mg/Ml Syringe) 1 mg IV Q2HP PRN; Protocol PRN Reason: Per Pain Protocol Last Admin: 06/16/22 02:08 Dose: 1 mg Documented By: Admin: 06/15/22 00:03 Dose: 1 mg Documented By: Admin: 06/14/22 21:37 Dose: 1 mg Documented By: Admin: 06/14/22 07:30 Dose: 1 mg Documented By: Admin: 06/14/22 02:34 Dose: 1 mg Documented By: Admin: 06/13/22 19:38 Dose: 1 mg Documented By: Admin: 06/13/22 15:58 Dose: 1 mg Documented By: CARTER Latanoprost (Latanoprost Ophth Drops 2.5ml Bottle) 1 gtt OU HS [facility] Last Admin: 06/17/22 22:06 Dose: 1 drop Documented By: Admin: 06/16/22 21:00 Dose: 1 drop Documented By: Admin: 06/15/22 21:56 Dose: 1 drop Documented By: Admin: 06/14/22 22:27 Dose: 1 drop Documented By: DAWOOD Lorazepam (Lorazepam 2 Mg/Ml Vial) 1 mg IV Q6HP PRN PRN Reason: ANXIETY/SEDATION Last Admin: 06/16/22 00:36 Dose: 1 mg Documented By: Admin: 06/13/22 00:25 Dose: 1 mg Documented By: CRISTOBAL Losartan Potassium (Losartan 50 Mg Tablet) 100 mg PO QDAY [facility] Last Admin: 06/18/22 09:09 Dose: 100 mg Documented By: Admin: 06/17/22 08:54 Dose: 100 mg Documented By: CAPO Metoclopramide HCl (Metoclopramide 10 Mg Tablet) 10 mg PO Q6H [facility] Last Admin: 06/18/22 07:12 Dose: 10 mg Documented By: Admin: 06/18/22 00:08 Dose: 10 mg Documented By: Admin: 06/17/22 18:09 Dose: 10 mg Documented By: Admin: 06/17/22 14:07 Dose: Not Given Documented By: CAPO Shift Summary 06/18/22 04:05 Shift Summary by Lachelle Da Silva Primary Diagnosis: Colonic obstruction Registration Status: Date of Surgery (if applicable): 06/13- Lap with sigmoid colon resection/colostomy Pertinent Medical Dx/Issue(s): Asthma, Nocturnal hypoxia (3L NC at home), Paralyzed L diaphragm, atelectasis, Afib, anxiety, HTN, HLD Med management (antibiotics, diuretics, BP): Scheduled PO Reglan, Cardizem, Cozaar, Lexapro; PRN hydralazine, Tylenol Skin/Wound Care: Midline incision w/ celi intact and scant drainage covered with transparent film drsg, Colostomy to LLQ- beefy red stoma Vital Signs with Trends: increased/irregular HR all other VSS on 3L NC (while asleep per pt request) Pain management (acute vs. chronic): PRN Tylenol x1 with some relief; Pt refused any other pain meds- offered to call MD to request other pain meds but pt refused multiple times this shift. Lab/Rad (abnormal, trends): AM labs drawn, results pending; awaiting urinalysis culture Neuro/Mental Status: A&O X4 Urinary Elimination Device: Voids per BSC Urinary output greater than 30mL/hr? No Date of last BM: 06/18- colostomy with small liquid, brown, strong smelling stool this shift Lines/Tubes: No IV access, MD aware Activity: Up SBA with FWW; ambulated in the hallway this shift Recommendations/questions for MD: Discharge Plan (needs, disposition, etc): SNF SWB in [facility] Initialized on 06/18/22 04:05 - END OF NOTE
== END 2022-06-18 12:30 | disposition other institution (70) | DRG 330 ==
LOC: MEDSUR 16:06 → ED 16:06 → OBSVTOIN 20:28 → MEDSUR 20:32
PROVIDERS: ADMIT Family Medicine Adult Medicine; ATTEND Family Medicine Adult Medicine